=== PATIENT | female | born 1975 | race Caucasian/White ===

== ENCOUNTER → 2016-12-23 | Emergency (ER) | payer MEDICAID ==
[~2016-12-23] VITALS: Ht 160 cm; Wt 97.5 kg
[~2016-12-23] MED LIST: ALEVE220 M1 PO; CEPHALEXIN500 MG PO; CLOTRIMAZOLE-BE15 GM TOP; CYMBALTA60 MG PO; FLAX SEED OIL1000 MG PO; FLEXERIL10 MG PO; IBUPROFEN600 MG PO; JANUVIA100 MG PO; LYRICA75 MG PO; METFORMIN HCL500 M1 PO; METHOTREXATE2.5 MG PO; MOTRIN800 MG PO; MULTIPLE VITAM1 EAC2 PO; ONDANSETRON ODT8 MG PO; PERCOCET 5-3251 EACH PO; PRILOSEC20 MG PO; PROZAC20 MG PO; RISPERDAL0.5 MG PO; SENOKOT8.6 MG PO; TIZANIDINE HCL4 M1 PO; TRAMADOL HCL50 MG PO; VENLAFAXINE HCL75 MG PO; VITAMIN D32000 UNI1 PO
== END ==
LOC: ED 17:38
DX: S61.011A Laceration without foreign body of right thumb without damage to nail, initial encounter (principal); K52.9 Noninfective gastroenteritis and colitis, unspecified; R55 Syncope and collapse; K21.9 Gastro-esophageal reflux disease without esophagitis; Z87.891 Personal history of nicotine dependence; Z90.710 Acquired absence of both cervix and uterus; Z90.49 Acquired absence of other specified parts of digestive tract; Z79.899 Other long term (current) drug therapy; X58.XXXA Exposure to other specified factors, initial encounter
CPT/HCPCS: 99283

== ENCOUNTER 2019-02-26 13:14 | Emergency (ER) | payer OTHER ==
[~2019-02-26] VITALS: Ht 160 cm; Wt 97.5 kg
[~2019-02-26 13:14] MED LIST changes: +ACTOS30 MG PO; +AMITRIPTYLINE H25 MG PO; +CYCLOBENZAPRINE10 MG PO; +ENBREL50 MG/1 ML SUB-Q; +GABAPENTIN300 MG PO; +LEVO-T50 MCG PO; +LIPITOR20 MG PO; +NOVOLOG MI100 UNIT/2 SUB-Q; +OMEPRAZOLE20 MG PO; +ULTRAM50 MG PO; +VOLTAREN-XR100 MG PO; +WELLBUTRIN SR150 MG PO
[2019-02-26] MEDS ORDERED: BASAGLAR K100 UNIT/1 INJ (13:40)
[2019-02-26] MEDS ORDERED: TRULICITY1.5 MG/0.5 INJ (13:40)
== END 2019-02-26 19:44 | disposition home or self-care (01) ==
LOC: ED 13:14
DX: R10.31 Right lower quadrant pain (principal); K21.9 Gastro-esophageal reflux disease without esophagitis; E11.9 Type 2 diabetes mellitus without complications; F17.200 Nicotine dependence, unspecified, uncomplicated; Z79.899 Other long term (current) drug therapy; Z79.4 Long term (current) use of insulin
CPT/HCPCS: 36415; 74177; 80053; 81001; 83690; 85025; 99284-25; J1170; J2405; Q9967

== ENCOUNTER 2019-05-08 11:01 | Emergency (ER) | payer OTHER ==
[~2019-05-08] VITALS: Ht 160 cm; Wt 97.5 kg
[~2019-05-08 11:01] MED LIST changes: +BASAGLAR K100 UNIT/1 INJ; +TRULICITY1.5 MG/0.5 INJ
[2019-05-08] MEDS ORDERED: LYRICA25 MG PO (11:16)
[2019-05-08] MEDS ORDERED: HUMIRA10 MG/0.1 SUB-Q (11:17)
[2019-05-08] MEDS ORDERED: PREDNISONE20 MG PO (16:29)
[2019-05-08] MEDS ORDERED: ZITHROMAX250 MG PO (16:29)
== END 2019-05-08 16:38 | disposition home or self-care (01) ==
LOC: ED 11:01
DX: J40 Bronchitis, not specified as acute or chronic (principal); D72.829 Elevated white blood cell count, unspecified; E11.9 Type 2 diabetes mellitus without complications; F17.200 Nicotine dependence, unspecified, uncomplicated; Z79.899 Other long term (current) drug therapy
CPT/HCPCS: 71045; 80048; 83605; 85025; 94640; 94664; 96361; 96374; 99283-25; J1100; J1885; J7030

== ENCOUNTER 2020-02-04 11:05 | Day surgery (SDC) | payer OTHER ==
[~2020-02-04] VITALS: Ht 160 cm; Wt 107.7 kg
[~2020-02-04 11:05] MED LIST changes: +HUMIRA10 MG/0.1 SUB-Q; +LYRICA25 MG PO; +PREDNISONE20 MG PO; +ZITHROMAX250 MG PO
--- NOTE | 2020-02-04 12:25 | NUR ---
02/04/20 1225 Adriane Newman 1214 PATIENT ARRIVES TO PACU RESTING WITH EYES CLOSED IN PRONE POSITION. PATIENT FOLLOWS COMMANDS AND IS ABLE TO REPOSITION HERSELF TO RIGHT LATERAL POSITION. RESP EVEN AND UNLABORED, ROOM AIRS SATS >90%. PATIENT DENIES PAIN OR NAUSEA. 1220 PATIENT RESTING WITH EYES CLOSED. FOLLOWS COMMANDS TO REPOSITION SELF TO BACK, HOB ELEVATED TO 45 DEGREES. PATIENT TAKING SIPS OF WATER. RESP EVEN AND UNLABORED, ROOM AIR SATS >90%. CONTINUES TO DENY PAIN OR NAUSEA. ASLEEP WHEN NOT STIMULATED.
--- NOTE | 2020-02-11 09:39 | PATH ---
[facility] [address] [facility] [place], [place] [address] Signed THIS IS AN ADDENDUM REPORT SPECIMEN(S): A BONE MARROW - CORE SPECIMEN(S): B BONE MARROW - ASPIRATION SPECIMEN(S): C COMPREHENSIVE FLOW CYTOMETRY ONLY, BM EDTA ASP CLINICAL HISTORY: Bone marrow biopsy. 44-year-old female with chronic leukocytosis and abnormal peripheral blood film, query MPN. See attached. 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 Peripheral blood, smear: - Mild leukocytosis with absolute mature neutrophilia, eosinophilia, and lymphocytosis. - Mild erythrocytosis with microcytic erythrocytes. B. Bone marrow, aspirate, clot section, and core biopsy: - Normocellular marrow (60%) with trilineage hematopoiesis and mildly increased eosinophils and eosinophilic precursors. - No increase in blasts. - Absent stainable iron, no ring sideroblasts. - See Diagnostic Comment. DIAGNOSTIC COMMENT: Evaluation of this bone marrow specimen demonstrates a normocellular marrow with an estimated M:E ratio of 2-3:1. Both myeloids and erythroids show full spectrum maturation, although there is a mild increase in eosinophils and eosinophilic precursors which corresponds to the peripheral blood eosinophilia. Morphologic features diagnostic of a myeloproliferative neoplasm are not appreciated. A JAK2 V617F mutational study is also negative. Additional ancillary studies including karyotype, FISH for BCR/ABL, CALR and MPL molecular studies, and an eosinophilia FISH panel are pending, and results will be reported in an addendum. It is additionally noted that the patient is a current every-day smoker, which may be a cause of leukocytosis and secondary polycythemia. Of note, the red cells are also microcytic and an iron stain performed on the bone marrow aspirate and clot sections demonstrate absent stainable iron (while there is no anemia, serum iron studies may be warranted to exclude a component of iron deficiency). PATIENT NAME: ENEDELIA GARCIA PATHOLOGY DATE OF : 71 REPORT #: [id number] PHYSICIAN: HERMES PATHOLOGY PCP: OSCAR FALL MD REPORT IS CONFIDENTIAL AND NOT TO BE RELEASED WITHOUT AUTHORIZATION [facility] [address] [place], [place] [address] Signed Clinical and laboratory correlation is recommended. J[facility]:slh:C2NR PERIPHERAL BLOOD: HEMOGRAM ([facility], 02/04/2020): WBC 15.8 K/uL, RBC 5.55 M/uL, HGB 12.9 g/dL, HCT 41.0%, MCV 73.9 fL, MCH 23 pg, MCHC 31 g/dL, RDW 18.1%, PLT 353 K/uL. MANUAL DIFFERENTIAL COUNT (100 cells, performed by pathologist): Segmented neutrophils 49%, lymphocytes 31%, monocytes 2%, eosinophils 17%, basophils 1%. The red cells are mildly increased in number, and are microcytic and normochromic. There is mild anisocytosis. Poikilocytosis is not prominent. Of note, the hemoglobin and hematocrit values are normal. Leukocytes are mildly increased in number. No significant dysplastic features are seen in the neutrophils. Lymphocytes are predominantly small and mature. There is a mild eosinophilia, without a significant basophilia or monocytosis. A few scattered large granular lymphocytes are present. No circulating blasts are identified. Platelets are normal in number and include rare giant forms. BONE MARROW: BONE MARROW ASPIRATE: The bone marrow aspirate smears demonstrate abundant cellular spicules. Myeloids are present in adequate number and show full spectrum maturation. Erythroids are also present in adequate number and show full spectrum maturation. Megakaryocytes are seen scattered, and show large lobulated nuclei, without overtly atypical features noted. Blasts are not increased. There is a mild increase in eosinophils and eosinophilic precursors. MANUAL DIFFERENTIAL COUNT (200 cells): Blasts 0.5%, promyelocytes 1%, myelocytes 19.5%, metamyelocytes 17.5%, segs/bands 33.5%, erythroids 19.5%, lymphocytes 1.5%, plasma cells 1%, eosinophils 6%. BONE MARROW CORE BIOPSY AND ASPIRATE CLOT SECTION CELL BLOCK: The bone marrow core biopsy demonstrates a cellularity of approximately 60% overall, although the cellularity is somewhat variable across the length of the core, ranging from less than 5% in one segment to approximately 80% in other areas. The estimated M:E ratio is approximately 2-3:1. Myeloids demonstrate full spectrum maturation, although there is an increase in eosinophils and eosinophilic precursors. Blasts do not appear increased. Erythroids are present, and show full spectrum maturation. Megakaryocytes are seen distributed throughout the marrow space with generally normal morphology. PATIENT NAME: ENEDELIA GARCIA PATHOLOGY DATE OF : 71 REPORT #: [id number] PHYSICIAN: HERMES PATHOLOGY PCP: OSCAR FALL MD REPORT IS CONFIDENTIAL AND NOT TO BE RELEASED WITHOUT AUTHORIZATION [address] [address] Signed Trabecular bone is normal. The bone marrow clot sections show numerous fragments of marrow with similar findings as the core biopsy. SPECIAL STAINS (with adequate controls): - Iron stain (aspirate smear): Stainable iron is essentially absent; no ring sideroblasts identified. - Iron stain (block B1): Stainable iron is not detected; no ring sideroblasts. - Reticulin (block A1): No significant increase in reticulin fibrosis (MF-0 of 3). IMMUNOHISTOCHEMICAL STAINS (block A1): - CD34: No increase in blasts; rare cells and vessels staining. - Myeloperoxidase: Highlights numerous myeloid cells, confirming M:E ratio. - CD71: Positive in erythroid precursors, confirming M:E ratio. - Factor VIII: Positive in scattered megakaryocytes; no distinct tight clustering seen. [facility] FLOW CYTOMETRY: Bone marrow, flow cytometry - No increase in blasts. - No monotypic B-cell or aberrant T-cell population detected. - See Comment. COMMENT: Flow cytometry of this bone marrow specimen demonstrates no increase in CD34 or CD117 positive blasts. In addition, no abnormal lymphocyte population is detected. Full interpretation of these results requires correlation with morphologic and clinical findings. FLOW CYTOMETRY ANALYSIS: FLOW DIFFERENTIAL (% Total CD45 vs. SSC gating): Myeloid 84%; Lymphoid 8%; Monocyte 1%; Dim CD45/Blast: 1%. Cell Count: 5.8 x 10*3/uL. POPULATION ANALYSIS: BLASTS: Analysis of the dim CD45 gate demonstrates 1.2% myeloblasts by CD34/CD117. LYMPHOID CELLS: The lymphocyte gate comprises 8% of total events and includes 81% T-cells with a CD4:CD8 ratio of 1.0:1 and normal ibanez T-cell antigen expression. 15% of lymphocytes are polyclonal B-cells with a kappa:lambda ratio of 1.0:1. The remainders are NK-cells. MYELOID CELLS: The myeloid population comprises 84% of the total events. No aberrant or immature immunophenotypic expression is detected. PATIENT NAME: ENEDELIA GARCIA PATHOLOGY DATE OF : 71 REPORT #: [id number] PHYSICIAN: HERMES PATHOLOGY PCP: OSCAR FALL MD REPORT IS CONFIDENTIAL AND NOT TO BE RELEASED WITHOUT AUTHORIZATION [facility] [address] [place], [place] [address] Signed MONOCYTES: The monocyte population comprises 1% of the total events. Monocytes are not increased. No aberrant immunophenotypic expression is detected. PLASMA CELLS: 0.2% plasma cells are detected in the screening gate neg-dimCD45/CD38. Plasma cells are CD45 dim and positive for CD19. ANTIBODIES USED: KAPPA, LAMBDA, CD20, CD10, CD19, CD23, CD38, FMC7, CD16, CD56, CD8, CD5, CD2, CD4, CD7, CD3, CD14, CD33, CD13, HLADR, CD34, CD117, CD15, CD45: TOTAL ANTIBODIES USED: 24. TCS FINAL DIAGNOSIS PERFORMED BY: Janna Summers MD, Feb 05 2020 12:32PM CYTOGENETICS: Pending, to be reported by addendum. FISH ANALYSIS: Pending, to be reported by addendum. MOLECULAR / PCR: Bone marrow aspirate, JAK2 (V617F) point mutation detection Mutation specific PCR assay Results/Conclusions: NEGATIVE - The specimen tested negative for the JAK2 V617F point mutation. - CALR Exon 9 and MPL W515 mutation analysis are pending and will be reported separately. - Clinical and histological correlation is required for diagnosis. NOTE: In cases of suspected PV, JAK2 exon 12 analysis1-2 may be of additional diagnostic utility. Please advise the laboratory if add on testing is requested. The V617F mutation of the JAK2 (Janus kinase 2) gene has been described in polycythemia vera (PV), of essential thrombocythemia (ET) and primary myelofibrosis (PMF) cases.3-4 Identification of the V617F JAK2 point mutation in myeloproliferative neoplasms (MPN) is indicated in diagnosis, classification and monitoring. The presence of a V617F JAK2 point mutation below the sensitivity limit of the mutation specific JAK2 V617F PCR assay [approximately 1 in 1000 cells (0.1 %) in EDTA specimens] cannot be ruled out. References 1. Ankitai et al. Leukemia 21: 2007 2. Pietra et al. Blood 111: 2008 3. Daniel et al. The Lancet 2005: [phone] 4. Dionne et al. Cancer Cell 2005: 387-397 PATIENT NAME: ENEDELIA GARCIA PATHOLOGY DATE OF : 71 REPORT #: [id number] PHYSICIAN: HERMES HA PCP: OSCAR FALL MD REPORT IS CONFIDENTIAL AND NOT TO BE RELEASED WITHOUT AUTHORIZATION [address] [address] Signed Method: Utilizes quantitative real-time polymerase chain reaction (PCR) assay with specific primers for the JAK2 V617F point mutation. Genomic DNA was isolated from the specimen and quality and quantity were confirmed by RQ-PCR. Although molecular testing is highly accurate, rarely false-positive and false-negative diagnostic errors may occur. ANDREA/ARABELLA/CAROLYNN The technical and professional components of the molecular analysis were performed at [facility] ([place], [place], case #[id number]). Detailed report is kept on file. GROSS DESCRIPTION: A. The specimen, labeled "Sullens, bone core," is received in formalin and consists of a single ulloa, trabecular bone core fragment measuring 1.7 cm in greatest dimension. It is submitted in cassette (A1) following decalcification in Immunocal for 1.5 hours. B. The specimen, labeled "Sullens, clot," is received in formalin and consists of a 1.6 x 1.3 x 0.2 cm aggregate of blood clot. It is submitted entirely in cassette (B1). TN (under the direct supervision of a pathologist) The Gross Description was prepared using a voice recognition system. The report was reviewed for accuracy; however, sound-alike word errors, addition and/or deletions may occur. If there is any question about this report, please contact Client Services. ADDITIONAL NOTES: This test was developed and its performance characteristics determined by [facility] It has not been cleared or approved by the US Food and Drug Administration. The FDA does not require this test to go through premarket FDA review. This test is used for clinical purposes. It should not be regarded as investigational or for research. This laboratory is certified under the Clinical Laboratory Improvement Amendments (CLIA) as qualified to perform high complexity clinical laboratory testing. Immunohistochemical and/or in situ hybridization studies were performed on this case with the appropriate positive controls that react as expected. This test was developed and its performance characteristics determined by [facility] It has not been cleared or approved by the U.S. Food and Drug Administration. The FDA has determined that such clearance or approval is not necessary. This test is used for clinical purposes. It should not be regarded as investigational or for research. [facility] is certified under the PATIENT NAME: ENEDELIA GARCIA PATHOLOGY DATE OF : 71 REPORT #: [id number] PHYSICIAN: HERMES PATHOLOGY PCP: OSCAR FALL MD REPORT IS CONFIDENTIAL AND NOT TO BE RELEASED WITHOUT AUTHORIZATION [facility] [address] [place], [place] [address] Signed Clinical Laboratory Improvement Amendments of 1988 (CLIA) as qualified to perform high complexity clinical laboratory testing. In this case, certain antibodies were performed by both immunohistochemistry and flow cytometry analysis because flow cytometry analysis did not fully explain all the light microscopic findings. Immunohistochemistry aided in the analysis. Both methods are deemed medically necessary in this case. PERFORMING LABORATORY: The technical and professional components were performed by [facility] [place] [address] (Plate Slitter And Inspector: Nixon Cordova D.O.; CLIA#: [id number]). The technical and professional components were performed by [facility] [address] [place] [address] (Plate Slitter And Inspector: Nixon Cordova D.O.; CLIA#: [id number]). IMAGES: A: [id number] A: [id number] REASON FOR ADDENDUM: To add results of additional testing. MOLECULAR ANALYSIS Bone marrow aspirate, CALR Exon 9 Mutation Analysis Results/Conclusions: NEGATIVE - The specimen tested negative for CALR exon 9 insertion/deletion mutations at the sensitivity level of this analysis. - Clinical and histologic correlation would be required for the definitive diagnosis. Please note, that the presence of CALR exon 9 mutations below the sensitivity limit of this analysis (approximately 1-10 %) cannot be ruled out. The gene encoding calreticulin (CALR) is mutated in the majority (70-85%) of essential thrombocythemia (ET) and primary myelofibrosis (PMF) cases with non-mutated JAK2.1,2 CALR mutations have been found to be the second most frequent genetic mutation in myeloproliferative neoplasms (MPN) after Jak2. 1,2 Mutations in CALR have been reported to be mutually exclusive with mutations in both JAK2 and MPL and are not reported in polycythemia vera (PV).1-3 The identification of CALR Exon 9 insertion/ deletion mutations in myeloproliferative neoplasms (MPN) may be useful to assist diagnosis, PATIENT NAME: ENEDELIA GARCIA PATHOLOGY DATE OF : 71 REPORT #: [id number] PHYSICIAN: HERMES HA PCP: OSCAR FALL MD REPORT IS CONFIDENTIAL AND NOT TO BE RELEASED WITHOUT AUTHORIZATION [address] [address] Signed classification and monitoring.1-3 In addition, the presence of CALR mutations has been associated with a more benign clinical course in comparison to corresponding disorders associated with JAK2 or MPL mutations.1-4 References: 1.Adrianna et al. N Engl J Med. 2013;369(25):2391-405 2. Hui et al. N Engl J Med. 2013;369(25):2379-90 3.Jennifer et al. Blood.2012Feb 03. 4.Jennifero et al. Blood.2012Feb 06. Method: Polymerase chain reaction (PCR) amplification in combination with fluorescence-based capillary electrophoresis is utilized to detect and monitor insertion /deletion mutations in CALR Exon 9. The CALR Exon 9 amplification yields a wild- type PCR product of 261 base pairs. The presence of an insert mutation in CALR Exon 9 will result in a mutant PCR product >261 base pairs, a deletion mutation yields a PCR product < 261 base pairs. Positive results are confirmed by Abi sequencing and further characterization of the mutation. This assay can detect mutations in CALR Exon 9 with a minimum sensitivity of 10% depending on the wild type background in the specimen. Although molecular testing is highly accurate, rarely false-positive and false-negative diagnostic errors may occur. ARABELLA/CAROLYNN/ANDREA The technical and professional components of the molecular analysis were performed at [facility] ([place], [place], case #[id number]). Detailed report is kept on file. To add results of additional testing. Bone marrow aspirate, cytogenetic analysis: Result: 46,XX[20] Normal female karyotype Interpretation: Twenty normal cells were observed. There was no evidence of any chromosome abnormality within the limits of this study. Cytogenetic Analysis Summary: Number of Cells Imaged and Analyzed: 20 Number of Cultures used for Analysis: 2 Number of Karyograms: 5 Banding Level: 325-400 Extra Cells Analyzed /Scored: 0 Banding Method: GTW/G The technical and professional components of the cytogenetic analysis were performed at [facility] ([place], [place], case #[id number]). Detailed report is kept on file. To add results of additional testing. MOLECULAR ANALYSIS PATIENT NAME: ENEDELIA GARCIA PATHOLOGY DATE OF : 71 REPORT #: [id number] PHYSICIAN: HERMES HA PCP: OSCAR FALL MD REPORT IS CONFIDENTIAL AND NOT TO BE RELEASED WITHOUT AUTHORIZATION [facility] [address] [place], [place] [address] Signed Bone marrow aspirate, MPL (W515L/K) point mutation detection Results/Conclusions: NEGATIVE - The specimen tested negative for MPL W515L/K point mutations. - Clinical and histologic correlation would be required for the diagnosis. W515L/K mutations of the juxtamembrane region of the thrombopoietin receptor MPL (myeloproliferative leukemia virus oncogene homology) have been described in JAK2 B626O-echcoxzr primary myelofibrosis (PMF) and essential thrombocythemia (ET).3 The identification of W515 L/K point mutations in myeloproliferative neoplasms (MPN) may be useful to assist diagnosis, classification and monitoring. The presence of a W515L/K MPL point mutation below the sensitivity limit of this analysis [approximately 5 in 100 cells (5 %) in EDTA specimens] cannot be ruled out. References: 1. Adrianna et al. N Engl Med.2013;369(25):2391-405 2. Mark et al. N Engl J Med. 2013;369(25):2379-90 3. Mike et al. D 2008: 435 441 Method: Polymerase chain reaction (PCR) amplification in combination with fluorescence-based capillary electrophoresis is utilized to identify MPL W515L/K point mutations. This assay can detect MPL W515L/K point mutations with a minimum sensitivity of 5% depending on the wild type background in the specimen. Although molecular testing is highly accurate rarely false-positive and false-negative diagnostic errors may occur. DW/MRL/BZ The technical and professional components of the molecular analysis were performed at [facility] ([place], [place], case #[id number]). Detailed report is kept on file. Diagnostician: Janna Summers MD Pathologist Electronically Signed 02/11/2020 Copies: ~ PATIENT NAME: ENEDELIA GARCIA PATHOLOGY DATE OF : 71 REPORT #: [id number] PHYSICIAN: HERMES PATHOLOGY PCP: OSCAR FALL MD REPORT IS CONFIDENTIAL AND NOT TO BE RELEASED WITHOUT AUTHORIZATION
== END 2020-02-04 12:40 | disposition home or self-care (01) ==
LOC: OPS 11:05 → DS 11:09 → OPS 12:00 → DS 12:00 → OPS 12:40
PROVIDERS: ATTEND Specialist
PROC: 07DR3ZX Extraction of Iliac Bone Marrow, Percutaneous Approach, Diagnostic (ICD-10-PCS; principal; 2020-02-04 12:00)
DX: C92.10 Chronic myeloid leukemia, BCR/ABL-positive, not having achieved remission (principal); F17.210 Nicotine dependence, cigarettes, uncomplicated; M79.7 Fibromyalgia; M19.90 Unspecified osteoarthritis, unspecified site; J30.2 Other seasonal allergic rhinitis; K21.9 Gastro-esophageal reflux disease without esophagitis; D75.1 Secondary polycythemia; D64.9 Anemia, unspecified; E11.9 Type 2 diabetes mellitus without complications; E55.9 Vitamin D deficiency, unspecified; J44.9 Chronic obstructive pulmonary disease, unspecified; Z90.49 Acquired absence of other specified parts of digestive tract; Z90.711 Acquired absence of uterus with remaining cervical stump; Z79.890 Hormone replacement therapy; Z79.4 Long term (current) use of insulin; Z88.8 Allergy status to other drugs, medicaments and biological substances
CPT/HCPCS: 85025; 99153; G0500; J2250; J3010; J7121

== ENCOUNTER 2021-03-18 18:36 | Emergency (ER) | payer OTHER ==
[~2021-03-18] VITALS: Ht 160 cm; Wt 107.5 kg
[2021-03-19] MEDS ORDERED: ONDANSETRON ODT8 MG PO (00:37)
== END 2021-03-19 01:19 | disposition home or self-care (01) ==
LOC: ED 18:36
DX: U07.1 COVID-19 (principal); M19.90 Unspecified osteoarthritis, unspecified site; K21.9 Gastro-esophageal reflux disease without esophagitis; E11.9 Type 2 diabetes mellitus without complications; F17.200 Nicotine dependence, unspecified, uncomplicated; Z88.8 Allergy status to other drugs, medicaments and biological substances; Z79.4 Long term (current) use of insulin; Z79.84 Long term (current) use of oral hypoglycemic drugs; Z79.899 Other long term (current) drug therapy
CPT/HCPCS: 36415; 74018; 80053; 81001; 83690; 85025; 96374; 96375; 99284-25; C9803; J1170; J2405; J7030; U0003

== ENCOUNTER 2021-06-24 18:55 | Emergency (ER) | payer OTHER ==
[~2021-06-24] VITALS: Ht 160 cm; Wt 107.5 kg
[2021-06-24] MEDS ORDERED: LEVOFLOXACIN750 MG PO (21:35)
--- NOTE | 2021-06-26 14:08 | EKG ---
[facility] [address] [facility] [place] [address] Signed Normal sinus rhythm Low voltage QRS Borderline ECG No previous ECGs available Confirmed by LUIS VILLANUEVA MD ([id number]) on 06/26/2021 2:08:19 PM Electronically Signed By: LUIS VILLANUEVA MD 06/26/21 1408 PATIENT NAME: ENEDELIA GARCIA Electrocardiogram DATE OF : 71 PHYSICIAN: LUIS VILLANUEVA MD REPORT #: [id number] REPORT IS CONFIDENTIAL AND NOT TO BE RELEASED WITHOUT AUTHORIZATION
== END 2021-06-24 21:54 | disposition home or self-care (01) ==
LOC: ED 18:55
DX: J18.9 Pneumonia, unspecified organism (principal); M19.90 Unspecified osteoarthritis, unspecified site; K21.9 Gastro-esophageal reflux disease without esophagitis; E11.9 Type 2 diabetes mellitus without complications; F17.200 Nicotine dependence, unspecified, uncomplicated; Z88.8 Allergy status to other drugs, medicaments and biological substances; Z79.4 Long term (current) use of insulin; Z79.84 Long term (current) use of oral hypoglycemic drugs; Z20.822 Contact with and (suspected) exposure to COVID-19
CPT/HCPCS: 36415; 71045; 80053; 81001; 83605; 84484; 85025; 85379; 87502; 93005; 93010; 99285-25; C9803; U0003

== ENCOUNTER 2022-08-22 20:18 | Emergency (ER) | payer OTHER ==
[~2022-08-22] VITALS: Ht 160 cm; Wt 115.0 kg
[~2022-08-22 20:18] MED LIST changes: +LEVOFLOXACIN750 MG PO
[2022-08-22] MEDS ORDERED: NYSTATIN100000 UN1 PO (22:04)
[2022-08-22 22:16] VITALS: BP 156/91
[2022-08-23] MEDS ORDERED: EPIPEN 2-P0.3 MG/0.3 IM (02:37)
== END 2022-08-22 22:17 | disposition home or self-care (01) ==
LOC: ED 20:18
DX: B37.0 Candidal stomatitis (principal); E11.9 Type 2 diabetes mellitus without complications; F17.200 Nicotine dependence, unspecified, uncomplicated; Z20.822 Contact with and (suspected) exposure to COVID-19; Z88.8 Allergy status to other drugs, medicaments and biological substances; Z79.899 Other long term (current) drug therapy; Z79.4 Long term (current) use of insulin
CPT/HCPCS: 36415; 71045; 80053; 85025; 85060; 85651; 87502; 87651; 96374; 96375; 99283 25; J0171; J1100; J1200; J7121; U0002

== ENCOUNTER 2022-09-20 19:31 | Inpatient (IN) | payer OTHER ==
[~2022-09-20] VITALS: Ht 160 cm; Wt 113.0 kg
--- OUTSIDE RECORDS SUMMARY | ~2022-09-20 | XMS | Continuity of Care Document ---
Demographics + + + | Address | [address] | | | [place] [address] | + + + | Preferred Language | Unknown | + + + | Marital Status | Never | + + + | Mu-Ism Affiliation | Unknown | + + + | Race | White | + + + | Ethnic Group | Not or | + + + Author + + + | Author | [facility] | + + + | Organization | [facility] | + + + | Address | [address] | | | [place] [address] | + + + | Phone | | + + + Care Team Providers + + + + | Care Tug Captain Name | Role | Phone | + [...] facility | + + + + | 2022-08-22 00:00 | FLUOXETINE HCL | [facility] | + + + + | 2022-09-05 00:00 | FLUOXETINE HCL | [facility] | + + + + | 2022-09-05 00:00 | OXYCODONE HCL | [facility] | + + + + | 2022-08-22 00:00 | OXYCODONE | [facility] | | | HCL/ACETAMINOPHEN | | + + + + | 2022-09-05 00:00 | OXYCODONE | [facility] | | | HCL/ACETAMINOPHEN | | + + + + | 2022-08-22 00:00 | METHOTREXATE SODIUM | [facility] | + + + + | 2022-09-05 00:00 | METHOTREXATE SODIUM | [facility] | + + + + | 2022-08-22 00:00 | NAPROXEN SODIUM | [facility] | + + + + | 2022-09-05 00:00 | NAPROXEN SODIUM | [facility] | + + + + | 2022-09-05 00:00 | Ergocalciferol (Vitamin | [facility] | | | D2) | | + + + + | 2022-08-22 00:00 | DULAGLUTIDE | [facility] | + + + + | 2022-09-05 00:00 | DULAGLUTIDE | [facility] | + + + + | 2022-08-22 00:00 | Insulin | [facility] | | | Glanadiae,[facility]rec.anlog | | + + + + | 2022-09-05 00:00 | Insulin | [facility] | | | Glargine,[facility].rec.anlog | | + + + + | 2022-09-05 00:00 | EPINEPHRINE | [facility] | + + + + | 2022-09-05 00:00 | Adalimumab | [facility] | + + + + | 2022-08-22 00:00 | Adalimumab | [facility] | + + + + | 2022-09-05 00:00 | Adalimumab | [facility] | + + + + | 2022-09-05 00:00 | | [facility] | | | Fluticasone/Umeclidin/Vilan | | | | ter | | + + + + | 2022-08-22 00:00 | IBUPROFEN | [facility] | + + + + | 2022-09-05 00:00 | IBUPROFEN | [facility] | + + + + | 2022-08-22 00:00 | OMEPRAZOLE | [facility] | + + + + | 2019-05-08 00:00 | AZITHROMYCIN | [facility] | + + + + | 2022-08-22 00:00 | PIOGLITAZONE HCL | [facility] | + + + + | 2022-09-05 00:00 | PIOGLITAZONE HCL | [facility] | + + + + | 2022-08-22 00:00 | CLOTRIMAZOLE/BETAMETHASONE | [facility] | | | DIP | | + + + + | 2022-09-05 00:00 | CLOTRIMAZOLE/BETAMETHASONE | [facility] | | | DIP | | + + + + | 2022-08-22 00:00 | CEPHALEXIN | [facility] | + + + + | 2022-09-05 00:00 | CEPHALEXIN | [facility] | + + + + | 2022-09-05 00:00 | CEVIMELINE HCL | [facility] | + + + + | 2022-08-22 00:00 | GABAPENTIN | [facility] | + + + + | 2022-09-05 00:00 | GABAPENTIN | [facility] | + + + + | 2021-06-24 00:00 | LEVOFLOXACIN | [facility] | + + + + | 2022-08-22 00:00 | NYSTATIN | [facility] | + + + + | 2016-12-23 00:00 | ONDANSETRON | [facility] | + + + + | 2021-03-19 00:00 | ONDANSETRON | [facility] | + + + + | 2019-05-08 00:00 | predniSONE | [facility] | + + + + | 2022-09-05 00:00 | predniSONE | [facility] | + + + + | 2022-09-05 00:00 | SUCRALFATE | [facility] | + + + + | 2022-09-05 00:00 | VALACYCLOVIR HCL | [facility] | + + + + | 2022-08-22 00:00 | VENLAFAXINE HCL | [facility] | + + + + | 2022-09-05 00:00 | VENLAFAXINE HCL | [facility] | + + + + | 2022-09-05 00:00 | PANTOPRAZOLE SODIUM | [facility] | + + + + | 2022-08-22 00:00 | SENNOSIDES | [facility] | + + + + | 2022-09-05 00:00 | SENNOSIDES | [facility] | + + + + | 2022-09-05 00:00 | Pregabalin | [facility] | + + + + | 2022-08-22 00:00 | TIZANIDINE HCL | [facility] | + + + + | 2022-09-05 00:00 | TIZANIDINE HCL | [facility] | + + + + | 2022-08-22 00:00 | PREGABALIN | [facility] | + + + + | 2022-08-22 00:00 | PREGABALIN | [facility] | + + + + | 2022-09-05 00:00 | PREGABALIN | [facility] | + + + + | 2022-08-22 00:00 | DULOXETINE HCL | [facility] | + + + + | 2022-09-05 00:00 | DULOXETINE HCL | [facility] | + + + + | 2022-08-22 00:00 | ATORVASTATIN | [facility] | + + + + | 2022-09-05 00:00 | ATORVASTATIN | [facility] | + + + + | 2022-08-22 00:00 | SITAGLIPTIN PHOSPHATE | [facility] | + + + + | 2022-09-05 00:00 | SITAGLIPTIN PHOSPHATE | [facility] | + + + + | 2022-08-23 00:00 | EPINEPHRINE | [facility] | + + + + | 2022-08-22 00:00 | CHOLECALCIFEROL (VITAMIN | [facility] | | | D3) | | + + + + | 2022-09-05 00:00 | CHOLECALCIFEROL (VITAMIN | [facility] | | | D3) | | + + + + | 2022-08-22 00:00 | ETANERCEPT | [facility] | + + + + | 2022-09-05 00:00 | ETANERCEPT | [facility] | + + + + | 2022-08-22 00:00 | CYCLOBENZAPRINE HCL | [facility] | + + + + | 2022-09-05 00:00 | CYCLOBENZAPRINE HCL | [facility] | + + + + | 2022-08-22 00:00 | TRAMADOL HCL | [facility] | + + + + | 2022-09-05 00:00 | TRAMADOL HCL | [facility] | + + + + | 2018-01-07 00:00 | TRAMADOL HCL | [facility] | + + + + | 2022-08-22 00:00 | DICLOFENAC SOD | [facility] | + + + + | 2022-09-05 00:00 | DICLOFENAC SOD | [facility] | + + + + | 2022-08-22 00:00 | AMITRIPTYLINE HCL | [facility] | + + + + | 2022-09-05 00:00 | AMITRIPTYLINE HCL | [facility] | + + + + | 2022-08-22 00:00 | METFORMIN HCL | [facility] | + + + + | 2022-09-05 00:00 | METFORMIN HCL | [facility] | + + + + | 2022-08-22 00:00 | Levothyroxine Sodium | [facility] | + + + + | 2022-09-05 00:00 | Levothyroxine Sodium | [facility] | + + + + | 2022-09-05 00:00 | LEVOTHYROXINE SODIUM | [facility] | + + + + | 2022-08-22 00:00 | Insulin Aspart Prot/Insuln | [facility] | | | Asp | | + + + + | 2022-09-05 00:00 | Insulin Aspart Prot/Insuln | [facility] | | | Asp | | + + + + | 2022-08-22 00:00 | buPROPion HCL | [facility] | + + + + | 2022-09-05 00:00 | buPROPion HCL | [facility] | + + + + Problems + + + + | date | description | facility | + + + + | 2021-03-19 00:00 | Infection due to severe | [facility] | | | acute respiratory syndrome | [...] | 2022-08-22 00:00 | Thrush | [facility] | + + + + | 2022-08-22 20:19 | CANDIDAL STOMATITIS | [facility] | + + + + | 2022-08-22 20:19 | TYPE 2 DIABETES MELLITUS | [facility] | | | WITHOUT COMPLICATIONS | | + + + + | 2022-08-22 20:19 | NICOTINE DEPENDENCE, | [facility] | | | UNSPECIFIED, UNCOMPLICATED | | + + + + | 2022-08-22 20:19 | 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 | [facility] | | | INSULIN | | + + + + | 2022-08-22 20:19 | OTHER HALFWAY (CURRENT) | [facility] | | | DRUG THERAPY | | + + + + | 2022-08-22 20:19 | ALLERGY STATUS TO OTH | [facility] | | | DRUG/MEDS/BIOL SUBST STATUS | | | | | | + + + + | 2022-09-05 00:00 | Mucositis | [facility] | + + + + | 2022-09-05 00:00 | Erythema multiforme | [facility] | + + + + | 2022-09-05 [...] + + | 2022-09-05 09:02 | OTHER ORTHODONTIC ASSISTANT (CURRENT) | [facility] | | | DRUG THERAPY | | + + + + | 2022-09-05 09:02 | ALLERGY STATUS TO OTH | [facility] | | | DRUG/MEDS/BIOL SUBST STATUS | | | | | | + + + + Procedures [...] 9 | + + + + + +------+ + + | | 2022-08-22 | [facility] | 50 | (missing) | (missing) | | (unavailable | 21:00:07 [facility] | | | | + + + +------+ + + + + | Result panel 10 | + + + + + +-------+ + + | | 2022-08-22 | [facility] | 4.9 | (missing) | (missing) | | (unavailable | 21:00:07 [facility] | | | | + + + +-------+ + + + + | Result panel 11 | + + + + + + [...] 18 | + + + + + +--------+ + + | | 2022-08-22 | [facility] | 36.5 | (missing) | (missing) | | (unavailable | 21:00:07 [facility] | | | | + + + +--------+ + + + + | Result panel 19 | + + + + + +-------+ [...] 21 | + + + + + +--------+ [...] 24 | + + + + + +-------+ + + | | 2022-08-22 | [facility] | 0.5 | (missing) | (missing) | | (unavailable | [facility] | | | | + + + +-------+ + + + + | Result panel 25 | + + + + + +------+ + + | | 2022-08-22 | [facility] | 50 | (missing) | (missing) | | (unavailable | : [facility] | | | | + + + +------+ + + + + | Result panel 26 | + + + + + +-------+---------+ + | | 2022-08-22 | [facility] | 219 | mg/dL | (missing) | | (unavailable | ::07 | [facility] | | | | + + + +-------+---------+ + + + | Result panel 27 | + + + + + +------+---------+ + | | 2022-08-22 | [facility] | 14 | mg/dL | (missing) | | (unavailable | ::07 [facility] | | | | + + + +------+---------+ + + + | Result panel 28 | + + + + + +--------+---------+ + | | 2022-08-22 | [facility] | 0.99 | mg/dL | (missing) | | (unavailable | 21::07 [facility] | | | | + + + +--------+---------+ + + + | Result panel 29 | + + + + + +------+ + + | | 2022-08-22 | [facility] | 70 | (missing) | (missing) | | (unavailable | 21:00:07 [facility] | | | | + + + +------+ + + + + | Result panel 30 | + + + + + +---------+ [...] 33 | + + + + + +-------+ + + | | 2022-08-22 | [facility] | 102 | (missing) | (missing) | | (unavailable | :: [facility] | | | | + + + +-------+ + + + + | Result panel 34 | + + + + + +------+ + + | | 2022-08-22 | [facility] | 29 | (missing) | (missing) | | (unavailable | 21::07 [facility] | | | | + + + +------+ + + + + | Result panel 35 | + + + + + +--------+ + + | | 2022-08-22 | [facility] | 11.0 | (missing) | (missing) | | (unavailable | ::07 [facility] | | | | + + + +--------+ + + + + | Result panel 36 | + + + + + +-------+---------+ + | | 2022-08-22 | [facility] | 8.5 | mg/dL | (missing) | | (unavailable | : [facility] | | | | + + + +-------+---------+ + + + | Result panel 37 | + + + + + +-------+ + + | | 2022-08-22 | [facility] | 6.6 | (missing) | (missing) | | (unavailable | : [facility] | | | [...] 39 | + + + + + +-------+ + + | | 2022-08-22 | [facility] | 3.5 | (missing) | (missing) | | (unavailable | 21::07 [facility] | | | | + + + +-------+ + + + + | Result panel 40 | + + + + + +--------+ + + | | 2022-08-22 | [facility] | 0.89 | (missing) | (missing) | | (unavailable | 21:00:07 [facility] | | | | + + + +--------+ + + + + | Result panel 41 | + + + + + +-------+ [...] 46 | + + + + + +--------+ + + | | 2022-09-05 | [facility] | 91.8 | (missing) | (missing) | | (unavailable | 09:37:07 [facility] | | | | + + + +--------+ + + + + | Result panel 47 | + + + + + +--------+ + + | | 2022-09-05 | [facility] | 30.7 | (missing) | (missing) | | (unavailable | 09:37:07 [facility] | | | | + + + +--------+ + + + + | Result panel 48 | + + + + + +--------+ + + | | 2022-09-05 | [facility] | 33.5 | (missing) | (missing) | | (unavailable | 09:37:07 [facility] | | | | + + + +--------+ + + + + | Result panel 49 | + + + + + +--------+ + + | | 2022-09-05 | [facility] | 38.2 | (missing) | (missing) | | (unavailable | 09:37:07 [facility] | | | | + + + +--------+ + + + + | Result panel 50 | + + + + + +-------+ + + | | 2022-09-05 | [facility] | 200 | (missing) | (missing) | | (unavailable | 09:37:07 [facility] | | | | + + + +-------+ + + + + | Result panel 51 | + + + + + +--------+ + + | | 2022-09-05 | [facility] | 43.3 | (missing) | (missing) | | (unavailable | 09:37:07 [facility] | | | | + + + +--------+ + + + + | Result panel 52 | + + + + + +--------+ + + | | 2022-09-05 | [facility] | 51.0 | (missing) | (missing) | | (unavailable | 09:37:07 [facility] | | | | + + + +--------+ + + + + | Result panel 53 | + + + + + +-------+ + + | | 2022-09-05 | [facility] | 4.6 | (missing) | (missing) | | (unavailable | 09:37:07 [facility] | | | | + + + +-------+ + + + + | Result panel 54 | + + + + + +-------+ [...] 56 | + + + + + +-------+---------+ + | | 2022-09-05 | [facility] | 141 | mg/dL | (missing) | | (unavailable | 09:37:07 [facility] | | | | + + + +-------+---------+ + + + | Result panel 57 | + + + + + +------+---------+ + | | 2022-09-05 | [facility] | 26 | mg/dL | (missing) | | (unavailable | 09:37:07 [facility] | | | | + + + +------+---------+ + + + | Result panel 58 | + + + + + +--------+---------+ + | | 2022-09-05 | [facility] | 1.11 | mg/dL | (missing) | | (unavailable | 09:37:07 [facility] | | | | + + + +--------+---------+ + + + | Result panel 59 | + + + + + +------+ + + | | 2022-09-05 | [facility] | 61 | (missing) | (missing) | | (unavailable | 09:37:07 [facility] | | | | + + + +------+ + + + + | Result panel 60 | + + + + + +---------+ + + | | 2022-09-05 | [facility] | 23.42 | (missing) | (missing) | | (unavailable | 09:37:07 [facility] | | | | + + + +---------+ + + + + | Result panel 61 | + + + + + +-------+ + + | | 2022-09-05 | [facility] | 139 | (missing) | (missing) | | (unavailable | 09:37:07 [facility] | | | | + + + +-------+ + + + + | Result panel 62 | + + + + + +-------+ + + | | 2022-09-05 | [facility] | 3.5 | (missing) | (missing) | | (unavailable | 09:37:07 [facility] | | | | + + + +-------+ + + + + | Result panel 63 | + + + + + +-------+ + + | | 2022-09-05 | [facility] | 101 | (missing) | (missing) | | (unavailable | 09:37:07 [facility] | | | | + + + +-------+ + + + + | Result panel 64 | + + + + + +------+ [...] 66 | + + + + + +-------+---------+ + | | 2022-09-05 | [facility] | 9.2 | mg/dL | (missing) | | (unavailable | 09:37:07 [facility] | | | | + + + +-------+---------+ + + + | Result panel 67 | + + + + + +-------+ + + | | 2022-09-05 | [facility] | 6.5 | (missing) | (missing) | | (unavailable | 09:37:07 [facility] ) | [...] 70 | + + + + + +--------+ + + | | 2022-09-05 | [facility] | 0.86 | (missing) | (missing) | | (unavailable | :37:07 [facility] | | | | + + + +--------+ + + + + | Result panel 71 | + + + + + +-------+ + + | | 2022-09-05 | [facility] | 1.0 | (missing) | (missing) | | (unavailable | :37:07 [facility] | | | | + + + +-------+ + + + + | Result panel 72 | + + + + + +------+ + + | | 2022-09-05 | [facility] | 66 | (missing) | (missing) | | (unavailable | 09:37:07 [facility] | | | | + + + +------+ + + + + | Result panel 73 [...] 74 | + + + + + +------+ [...] 76 | + + + + + + + + + | | 2022-09-05 | [facility] | SEE COMMENT | (missing) | (missing) | | (unavailable | 09:37:07 [facility] | | | | + + + + + + + + + | Result panel 77 | + + + + + +--------+ + + | | 2022-09-05 | [facility] | 3.12 | (missing) | (missing) | | (unavailable | 09:37:07 [facility] | | | | + + + +--------+ + + + + | Result panel 78 | + + + + + +-------+ [...] 236 | lb | + + + +---------+"
--- OUTSIDE RECORDS SUMMARY | ~2022-09-20 | XMS | Continuity of Care Document ---
Demographics + + + | Address | [address] | | | [place] [address] | + + + | Preferred Language | Unknown | + + + | Marital Status | Never | + + + | Adventism Affiliation | Unknown | + + + | Race | White | + + + | Ethnic Group | Not or | + + + Author + + + | Author | [facility] | + + + | Organization | [facility] | + + + | Address | [address] | | | [place] [address] | + + + | Phone | | + + + Care Team Providers + + + + | Care Mortgage Loan Coordinator Name | Role | Phone | + [...] | 2022-08-22 00:00 | FLUOXETINE HCL | [facility] | + + + + | 2022-09-05 00:00 | FLUOXETINE HCL | [facility] | + + + + | 2022-09-05 00:00 | OXYCODONE HCL | [facility] | + + + + | 2022-08-22 00:00 | OXYCODONE | [facility] | | | HCL/ACETAMINOPHEN | | + + + + | 2022-09-05 00:00 | OXYCODONE | [facility] | | | HCL/ACETAMINOPHEN | | + + + + | 2022-08-22 00:00 | METHOTREXATE SODIUM | [facility] | + + + + | 2022-09-05 00:00 | METHOTREXATE SODIUM | [facility] | + + + + | 2022-08-22 00:00 | NAPROXEN SODIUM | [facility] | + + + + | 2022-09-05 00:00 | NAPROXEN SODIUM | [facility] | + + + + | 2022-09-05 00:00 | Ergocalciferol (Vitamin | [facility] | | | D2) | | + + + + | 2022-08-22 00:00 | DULAGLUTIDE | [facility] | + + + + | 2022-09-05 00:00 | DULAGLUTIDE | [facility] | + + + + | 2022-08-22 00:00 | Insulin | [facility] | | | Glanadiae,[email or web address] | | + + + + | 2022-09-05 00:00 | Insulin | [facility] | | | Glargine,[facility].[email or web address] | | + + + + | 2022-09-05 00:00 | EPINEPHRINE | [facility] | + + + + | 2022-09-05 00:00 | Adalimumab | [facility] | + + + + | 2022-08-22 00:00 | Adalimumab | [facility] | + + + + | 2022-09-05 00:00 | Adalimumab | [facility] | + + + + | 2022-09-05 00:00 | | [facility] | | | Fluticasone/Umeclidin/Vilan | | | | ter | | + + + + | 2022-08-22 00:00 | IBUPROFEN | [facility] | + + + + | 2022-09-05 00:00 | IBUPROFEN | [facility] | + + + + | 2022-08-22 00:00 | OMEPRAZOLE | [facility] | + + + + | 2019-05-08 00:00 | AZITHROMYCIN | [facility] | + + + + | 2022-08-22 00:00 | PIOGLITAZONE HCL | [facility] | + + + + | 2022-09-05 00:00 | PIOGLITAZONE HCL | [facility] | + + + + | 2022-08-22 00:00 | CLOTRIMAZOLE/BETAMETHASONE | [facility] | | | DIP | | + + + + | 2022-09-05 00:00 | CLOTRIMAZOLE/BETAMETHASONE | [facility] | | | DIP | | + + + + | 2022-08-22 00:00 | CEPHALEXIN | [facility] | + + + + | 2022-09-05 00:00 | CEPHALEXIN | [facility] | + + + + | 2022-09-05 00:00 | CEVIMELINE HCL | [facility] | + + + + | 2022-08-22 00:00 | GABAPENTIN | [facility] | + + + + | 2022-09-05 00:00 | GABAPENTIN | [facility] | + + + + | 2021-06-24 00:00 | LEVOFLOXACIN | [facility] | + + + + | 2022-08-22 00:00 | NYSTATIN | [facility] | + + + + | 2016-12-23 00:00 | ONDANSETRON | [facility] | + + + + | 2021-03-19 00:00 | ONDANSETRON | [facility] | + + + + | 2019-05-08 00:00 | predniSONE | [facility] | + + + + | 2022-09-05 00:00 | predniSONE | [facility] | + + + + | 2022-09-05 00:00 | SUCRALFATE | [facility] | + + + + | 2022-09-05 00:00 | VALACYCLOVIR HCL | [facility] | + + + + | 2022-08-22 00:00 | VENLAFAXINE HCL | [facility] | + + + + | 2022-09-05 00:00 | VENLAFAXINE HCL | [facility] | + + + + | 2022-09-05 00:00 | PANTOPRAZOLE SODIUM | [facility] | + + + + | 2022-08-22 00:00 | SENNOSIDES | [facility] | + + + + | 2022-09-05 00:00 | SENNOSIDES | [facility] | + + + + | 2022-09-05 00:00 | Pregabalin | [facility] | + + + + | 2022-08-22 00:00 | TIZANIDINE HCL | [facility] | + + + + | 2022-09-05 00:00 | TIZANIDINE HCL | [facility] | + + + + | 2022-08-22 00:00 | PREGABALIN | [facility] | + + + + | 2022-08-22 00:00 | PREGABALIN | [facility] | + + + + | 2022-09-05 00:00 | PREGABALIN | [facility] | + + + + | 2022-08-22 00:00 | DULOXETINE HCL | [facility] | + + + + | 2022-09-05 00:00 | DULOXETINE HCL | [facility] | + + + + | 2022-08-22 00:00 | ATORVASTATIN | [facility] | + + + + | 2022-09-05 00:00 | ATORVASTATIN | [facility] | + + + + | 2022-08-22 00:00 | SITAGLIPTIN PHOSPHATE | [facility] | + + + + | 2022-09-05 00:00 | SITAGLIPTIN PHOSPHATE | [facility] | + + + + | 2022-08-23 00:00 | EPINEPHRINE | [facility] | + + + + | 2022-08-22 00:00 | CHOLECALCIFEROL (VITAMIN | [facility] | | | D3) | | + + + + | 2022-09-05 00:00 | CHOLECALCIFEROL (VITAMIN | [facility] | | | D3) | | + + + + | 2022-08-22 00:00 | ETANERCEPT | [facility] | + + + + | 2022-09-05 00:00 | ETANERCEPT | [facility] | + + + + | 2022-08-22 00:00 | CYCLOBENZAPRINE HCL | [facility] | + + + + | 2022-09-05 00:00 | CYCLOBENZAPRINE HCL | [facility] | + + + + | 2022-08-22 00:00 | TRAMADOL HCL | [facility] | + + + + | 2022-09-05 00:00 | TRAMADOL HCL | [facility] | + + + + | 2018-01-07 00:00 | TRAMADOL HCL | [facility] | + + + + | 2022-08-22 00:00 | DICLOFENAC SOD | [facility] | + + + + | 2022-09-05 00:00 | DICLOFENAC SOD | [facility] | + + + + | 2022-08-22 00:00 | AMITRIPTYLINE HCL | [facility] | + + + + | 2022-09-05 00:00 | AMITRIPTYLINE HCL | [facility] | + + + + | 2022-08-22 00:00 | METFORMIN HCL | [facility] | + + + + | 2022-09-05 00:00 | METFORMIN HCL | [facility] | + + + + | 2022-08-22 00:00 | Levothyroxine Sodium | [facility] | + + + + | 2022-09-05 00:00 | Levothyroxine Sodium | [facility] | + + + + | 2022-09-05 00:00 | LEVOTHYROXINE SODIUM | [facility] | + + + + | 2022-08-22 00:00 | Insulin Aspart Prot/Insuln | [facility] | | | Asp | | + + + + | 2022-09-05 00:00 | Insulin Aspart Prot/Insuln | [facility] | | | Asp | | + + + + | 2022-08-22 00:00 | buPROPion HCL | [facility] | + + + + | 2022-09-05 00:00 | buPROPion HCL | [facility] | + + + + Problems + + + + | date | description | facility | + + + + | 2021-03-19 00:00 | Infection due to severe | [facility] | | | acute respiratory syndrome | [...] | 2022-08-22 00:00 | Thrush | 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 | + + + + | 2022-09-05 00:00 | Erythema multiforme | [facility] | + + + + | 2022-09-05 [...] + + | 2022-09-05 09:02 | OTHER COMPUTER ASSEMBLER (CURRENT) | [facility] | | | DRUG [...]
--- OUTSIDE RECORDS SUMMARY | ~2022-09-20 | XMS | Continuity of Care Document ---
Demographics + + + | Address | [address] | | | [place] [address] | + + + | Preferred Language | Unknown | + + + | Marital Status | Never | + + + | Cheondoism Affiliation | Unknown | + + + | Race | White | + + + | Ethnic Group | Not or | + + + Author + + + | Author | [facility] | + + + | Organization | [facility] | + + + | Address | [address] | | | [place] [address] | + + + | Phone | | + + + Care Team Providers + + + + | Care Machine Maintenance Name | Role | Phone | + [...] | 2022-08-22 00:00 | FLUOXETINE HCL | [facility] | + + + + | 2022-09-05 00:00 | FLUOXETINE HCL | [facility] | + + + + | 2022-09-05 00:00 | OXYCODONE HCL | [facility] | + + + + | 2022-08-22 00:00 | OXYCODONE | [facility] | | | HCL/ACETAMINOPHEN | | + + + + | 2022-09-05 00:00 | OXYCODONE | [facility] | | | HCL/ACETAMINOPHEN | | + + + + | 2022-08-22 00:00 | METHOTREXATE SODIUM | [facility] | + + + + | 2022-09-05 00:00 | METHOTREXATE SODIUM | [facility] | + + + + | 2022-08-22 00:00 | NAPROXEN SODIUM | [facility] | + + + + | 2022-09-05 00:00 | NAPROXEN SODIUM | [facility] | + + + + | 2022-09-05 00:00 | Ergocalciferol (Vitamin | [facility] | | | D2) | | + + + + | 2022-08-22 00:00 | DULAGLUTIDE | [facility] | + + + + | 2022-09-05 00:00 | DULAGLUTIDE | [facility] | + + + + | 2022-08-22 00:00 | Insulin | [facility] | | | Glanadiae,[facility].[email or web address] | | + + + + | 2022-09-05 00:00 | Insulin | [facility] | | | Glargine,[facility].[email or web address] | | + + + + | 2022-09-05 00:00 | EPINEPHRINE | [facility] | + + + + | 2022-09-05 00:00 | Adalimumab | [facility] | + + + + | 2022-08-22 00:00 | Adalimumab | [facility] | + + + + | 2022-09-05 00:00 | Adalimumab | [facility] | + + + + | 2022-09-05 00:00 | | [facility] | | | Fluticasone/Umeclidin/Vilan | | | | ter | | + + + + | 2022-08-22 00:00 | IBUPROFEN | [facility] | + + + + | 2022-09-05 00:00 | IBUPROFEN | [facility] | + + + + | 2022-08-22 00:00 | OMEPRAZOLE | [facility] | + + + + | 2019-05-08 00:00 | AZITHROMYCIN | [facility] | + + + + | 2022-08-22 00:00 | PIOGLITAZONE HCL | [facility] | + + + + | 2022-09-05 00:00 | PIOGLITAZONE HCL | [facility] | + + + + | 2022-08-22 00:00 | CLOTRIMAZOLE/BETAMETHASONE | [facility] | | | DIP | | + + + + | 2022-09-05 00:00 | CLOTRIMAZOLE/BETAMETHASONE | [facility] | | | DIP | | + + + + | 2022-08-22 00:00 | CEPHALEXIN | [facility] | + + + + | 2022-09-05 00:00 | CEPHALEXIN | [facility] | + + + + | 2022-09-05 00:00 | CEVIMELINE HCL | [facility] | + + + + | 2022-08-22 00:00 | GABAPENTIN | [facility] | + + + + | 2022-09-05 00:00 | GABAPENTIN | [facility] | + + + + | 2021-06-24 00:00 | LEVOFLOXACIN | [facility] | + + + + | 2022-08-22 00:00 | NYSTATIN | [facility] | + + + + | 2016-12-23 00:00 | ONDANSETRON | [facility] | + + + + | 2021-03-19 00:00 | ONDANSETRON | [facility] | + + + + | 2019-05-08 00:00 | predniSONE | [facility] | + + + + | 2022-09-05 00:00 | predniSONE | [facility] | + + + + | 2022-09-05 00:00 | SUCRALFATE | [facility] | + + + + | 2022-09-05 00:00 | VALACYCLOVIR HCL | [facility] | + + + + | 2022-08-22 00:00 | VENLAFAXINE HCL | [facility] | + + + + | 2022-09-05 00:00 | VENLAFAXINE HCL | [facility] | + + + + | 2022-09-05 00:00 | PANTOPRAZOLE SODIUM | [facility] | + + + + | 2022-08-22 00:00 | SENNOSIDES | [facility] | + + + + | 2022-09-05 00:00 | SENNOSIDES | [facility] | + + + + | 2022-09-05 00:00 | Pregabalin | [facility] | + + + + | 2022-08-22 00:00 | TIZANIDINE HCL | [facility] | + + + + | 2022-09-05 00:00 | TIZANIDINE HCL | [facility] | + + + + | 2022-08-22 00:00 | PREGABALIN | [facility] | + + + + | 2022-08-22 00:00 | PREGABALIN | [facility] | + + + + | 2022-09-05 00:00 | PREGABALIN | [facility] | + + + + | 2022-08-22 00:00 | DULOXETINE HCL | [facility] | + + + + | 2022-09-05 00:00 | DULOXETINE HCL | [facility] | + + + + | 2022-08-22 00:00 | ATORVASTATIN | [facility] | + + + + | 2022-09-05 00:00 | ATORVASTATIN | [facility] | + + + + | 2022-08-22 00:00 | SITAGLIPTIN PHOSPHATE | [facility] | + + + + | 2022-09-05 00:00 | SITAGLIPTIN PHOSPHATE | [facility] | + + + + | 2022-08-23 00:00 | EPINEPHRINE | [facility] | + + + + | 2022-08-22 00:00 | CHOLECALCIFEROL (VITAMIN | [facility] | | | D3) | | + + + + | 2022-09-05 00:00 | CHOLECALCIFEROL (VITAMIN | [facility] | | | D3) | | + + + + | 2022-08-22 00:00 | ETANERCEPT | [facility] | + + + + | 2022-09-05 00:00 | ETANERCEPT | [facility] | + + + + | 2022-08-22 00:00 | CYCLOBENZAPRINE HCL | [facility] | + + + + | 2022-09-05 00:00 | CYCLOBENZAPRINE HCL | [facility] | + + + + | 2022-08-22 00:00 | TRAMADOL HCL | [facility] | + + + + | 2022-09-05 00:00 | TRAMADOL HCL | [facility] | + + + + | 2018-01-07 00:00 | TRAMADOL HCL | [facility] | + + + + | 2022-08-22 00:00 | DICLOFENAC SOD | [facility] | + + + + | 2022-09-05 00:00 | DICLOFENAC SOD | [facility] | + + + + | 2022-08-22 00:00 | AMITRIPTYLINE HCL | [facility] | + + + + | 2022-09-05 00:00 | AMITRIPTYLINE HCL | [facility] | + + + + | 2022-08-22 00:00 | METFORMIN HCL | [facility] | + + + + | 2022-09-05 00:00 | METFORMIN HCL | [facility] | + + + + | 2022-08-22 00:00 | Levothyroxine Sodium | [facility] | + + + + | 2022-09-05 00:00 | Levothyroxine Sodium | [facility] | + + + + | 2022-09-05 00:00 | LEVOTHYROXINE SODIUM | [facility] | + + + + | 2022-08-22 00:00 | Insulin Aspart Prot/Insuln | [facility] | | | Asp | | + + + + | 2022-09-05 00:00 | Insulin Aspart Prot/Insuln | [facility] | | | Asp | | + + + + | 2022-08-22 00:00 | buPROPion HCL | [facility] | + + + + | 2022-09-05 00:00 | buPROPion HCL | [facility] | + + + + Problems + + + + | date | description | facility | + + + + | 2021-03-19 00:00 | Infection due to severe | [facility] | | | acute respiratory syndrome | [...] | 2022-08-22 00:00 | Thrush | [facility] | + + + [...] + + + | 2022-08-22 20:19 | PUSH CONNECTOR ASSEMBLER (CURRENT) USE OF | [facility] | | | INSULIN | | + + + + | 2022-08-22 20:19 | OTHER LONG-TERM (CURRENT) | [facility] | | | DRUG THERAPY | | + + + + | 2022-08-22 20:19 | ALLERGY STATUS TO OTH | [facility] | | | DRUG/MEDS/BIOL SUBST STATUS | | | | | | + + + + | 2022-09-05 00:00 | Mucositis | [facility] | + + + + | 2022-09-05 00:00 | Erythema multiforme | [facility] | + + + + [...] + + | 2022-09-05 09:02 | OTHER PUSH CONNECTOR ASSEMBLER (CURRENT) | [facility] | | | [...]
[~2022-09-20 19:31] MED LIST changes: +CALCIUM PO; +CEVIMELINE HCL30 MG PO; +EPINEPHRIN0.3 MG/0.3 IM; +EPIPEN 2-P0.3 MG/0.3 IM; +HUMIRA PEN40 MG/0.4 SUB-Q; +LEVOTHYROXINE50 MCG PO; +NYSTATIN100000 UN1 PO; +OXYCODONE HCL5 MG PO; +PANTOPRAZOLE SO40 MG PO; +PREGABALIN100 MG PO; +TRELEGY ELLIPT1 EACH INH; +VALACYCLOVIR1000 MG PO; +VITAMIN D21250 MCG PO; -VITAMIN D32000 UNI1 PO; +[UNRECOGNIZED DRUG - OTHER] PO
--- OUTSIDE RECORDS SUMMARY | 2022-09-20 19:35 | XMS ---
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 EPadmini VISIT COUNT (12 MO.) [address] [place] [address] TOTAL 3 NOTE: Visits indicate total known visits. 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
[2022-09-20 20:18] LABS: HEMATOCRIT 30.7 % (35.0-50.0); HEMOGLOBIN 9.6 g/dL (12.0-18.0); MCHC 31.3 g/dl (30-36); MCV 95.7 fl (81-99); PLATELET COUNT 482 K/uL (140-440); RBC 3.21 M/ul (4.3-5.7); RDW 34.3 (10.5-15.0)
[2022-09-20 20:31] LABS: ALBUMIN 2.6 g/dL (3.4-5.0); ALBUMIN/GLOBULIN RATIO 0.6 (1.1-2.4); ANION GAP 17.4 (7-21); BILIRUBIN, TOTAL 0.6 ng/dL (0.2-1.0); BUN/CREATININE RATIO 17.92 (6.0-28.6); CALCIUM 9.1 mg/dL (8.5-10.1); CREATININE, SERUM 1.06 mg/dL (0.55-1.02); POTASSIUM 3.4 mmol/L (3.5-5.1); PROTEIN, TOTAL 6.9 g/dL (6.4-8.2)
[2022-09-20 20:31] LABS: BILIRUBIN, URINE NEGATIVE (negative); BLOOD/HGB, URINE TRACE-I (Negative); KETONE, URINE TRACE (Negative); LEUK ESTERASE, URINE TRACE (negative); NITRITE, URINE NEGATIVE (negative); PH, URINE 6.5 (5-7)
[2022-09-20 20:34] LABS: BANDS, MANUAL DIFF 7; LYMPHOCYTES, MANUAL DIFF 17; MONOCYTES, MANUAL DIFF 1; NEUTROPHILS, MANUAL DIFF 75
[2022-09-20 20:37] LABS: LACTIC ACID, BLOOD 3.5 mmol/L (0.4-2.0)
[2022-09-20 20:38] LABS: EPITHELIAL CELLS, URINE SQUAMOUS 1+ /lpf (0-1+); WHITE BLOOD CELLS, URINE >50 /HPF (0-5)
[2022-09-20 20:39] LABS: INFLUENZA B NAA NEGATIVE (NEGATIVE); RESPIRATORY SYNCYTIAL VIR NAA NEGATIVE (NEGATIVE)
[2022-09-20 20:39] LABS: BACTERIA, URINE 1+ /hpf (negative); CASTS, URINE NONE SEEN \\lpf; CRYSTALS, URINE NONE SEEN (0-1+); REFLEX CULTURE, URINE Yes (No)
[2022-09-20 22:02] LABS: LACTIC ACID, BLOOD 3.5 mmol/L (0.4-2.0)
[2022-09-20 23:45] VITALS: BP 96/55
[2022-09-20 23:51] VITALS: BP 90/58
[2022-09-21] VITALS (21 sets, daily range): BP systolic 81–143; BP diastolic 46–90
--- NOTE | 2022-09-21 01:19 | NUR ---
PT NEW ADMIT TO ICU. FULL PT REPORT OBTAINED FROM MAYNOR ADAM RN. PT TRANSFERRED FROM [facility] TO HOSPITAL BED WITHOUT PROBLEMS. PT IS A&O X 4 WITH A GCS OF 15. PT MOVES ALL EXTREMITIES WITH PURPOSE. V/S OBTAINED AND SAFETY CHECK PERFORMED. PIVS ASSESSED AND FOUND TO BE PATENT. PT ABLE TO MOVES SELF FROM SIDE TO SIDE AND EDUCATED REGARDING IMPORTANCE OF SKIN INTEGRITY. 2 RN SKIN CHECK PERFORME. MD CONSULTED REGARDING HYPOTENSION. PT WITH MAP IN THE 50S. DR. WEATHERS IS AWARE AND WANTS TO KEEP MAP ABOVE 58.
[2022-09-21 05:38] LABS: MCHC 31.4 g/dl (30-36)
[2022-09-21 05:41] LABS: HEMATOCRIT 30.9 % (35.0-50.0); HEMOGLOBIN 9.7 g/dL (12.0-18.0); MCH 29.7 (27-36); MCV 94.6 fl (81-99); PLATELET COUNT 354 K/uL (140-440); RBC 3.27 M/ul (4.3-5.7); RDW 34.6 (10.5-15.0)
[2022-09-21 05:54] LABS: ALBUMIN 2.2 g/dL (3.4-5.0); ALBUMIN/GLOBULIN RATIO 0.55 (1.1-2.4); ANION GAP 11.6 (7-21); BILIRUBIN, TOTAL 0.6 ng/dL (0.2-1.0); BUN/CREATININE RATIO 16.3 (6.0-28.6); CALCIUM 8.8 mg/dL (8.5-10.1); CREATININE, SERUM 0.92 mg/dL (0.55-1.02); POTASSIUM 3.6 mmol/L (3.5-5.1); PROTEIN, TOTAL 6.2 g/dL (6.4-8.2)
[2022-09-21 05:57] LABS: BANDS, MANUAL DIFF 7; LYMPHOCYTES, MANUAL DIFF 18; MONOCYTES, MANUAL DIFF 3; NEUTROPHILS, MANUAL DIFF 72
--- NOTE | 2022-09-21 06:17 | NUR ---
PT REMAINS CONSCIOUS, ALERT AND ORIENTED X 4 WITH A GCS OF 15. PT HAS BEEN IN A NSR, NORMOTENSIVE AND A-FEBRILE. PT WITH ACUTE ONSET L. FLANK PAIN AND HEADACHE THROUGHOUT THE NIGHT. MD CONSULTED MULTIPLE TIMES AND NEWS ORDERS OBTAINED. PT WITH ADEQUATE U/O. LAST BM NOTED ON 09/20, BS ARE HYPOACTIVE. LABS: K 3.6, CREATININE .92, WBC REMAINS CRITICALLY ELEVATED BUT IMPROVED TO 48.8, H/H STABLE AND BLOOD/ URINE CULTURES STILL PENDING.
--- NOTE | 2022-09-21 08:00 | NUR ---
PT LAYING ON SIDE IN BED TEARFUL WITH PAIN. STATES HER BACK IS CRAMPING RELATED TO MISSING DOSES OF FLEXARIL. STATES MORPHINE HELPED "KIDNEY PAIN". ADEQUATE ORAL INTAKE AND URINE OUTPUT. PT STATES SHE FEELS CONSTIPATED, TOOK MIRILAX AT HOME YESTERDAY, BM YESTERDAY WELL. VERBAL ORDERS RECEIVED BY MD FOR ONE TIME ATIVAN DOSE AND RESTART FLEXARIL DOSE.
--- NOTE | 2022-09-21 09:00 | NUR ---
Spoke with Hillary. Sister, Mague, in room. Hillary lives in an apartment. Her daughter and grandchildren live with her. She has 2 steps into her apartment and does not have any issues getting into her home. She and daughter share shopping, cooking, and cleaning chores. Her sister also assist when needed. Pt uses a CPAP and a nebulizier. Pt drives. She is disabled. She has resources for food stamps. She is aware of [employer] but does not feel she needs services from them. She is aware of the food [employer] but does not use. I offered a list for food assistance, she denies need. Pt plans on dc to home when cleared medically. Sister states she will help, Both deny needs.
--- NOTE | 2022-09-21 09:19 | NUR ---
PT RESTING IN BED WITH EYES CLOSED, BODY RELAXED POSISTION. RATES PAIN 05/22. VS WNL.
--- NOTE | 2022-09-21 09:50 | NUR ---
PATIENT UP TO BSC FOR VOID. BACK TO BED WITH FAMILY MEMBERS ASSISTANCE. PATIENT RESTING AT THIS TIME. FRESH ICE WATER PROVIDED.
--- NOTE | 2022-09-21 10:00 | NUR ---
PT RESTING IN BED WITH EYES CLOSED, RR EVEN AND UNLABORED, APPEARS COMFORTABLE. IV PUMP ALARMING, ADDRESSED. CALL LIGHT IN REACH, FRIEND AT BEDSIDE.
--- NOTE | 2022-09-21 11:40 | NUR ---
PATIENT RESTING IN BED, EYES CLOSED. WOKE TO VOICE. VITALS CHARTED. CALL LIGHT IN EASY REACH. SISTER AT BEDSIDE.
--- NOTE | 2022-09-21 11:46 | NUR ---
PT CONTINUES TO REST IN BED, RR EVEN AND UNLABORED. HR ELEVATED WITH PERSISTANT LOW GRADE FEVER - REQUEST TO MD FOR PRN TYLENOL.
--- NOTE | 2022-09-21 11:48 | NUR ---
PT SLEEPING IN BED. DID NOT AWAKEN DRING MY CONVERSATION WITH SISTER MARY WHO WAS IN CHAIR. I EXERCISED MINISTRY OF PRESENCE SISTER AND I TALKED OF SHARED CONNECTIONS AND LIFE EXPERIENCES. GAVE GUIDEPOST AND CONTACT CARD. SISTER CONSENTED TO PRAYER. PRAYED FOR HEALING AND ONGOING ONGOING BLESSING.
--- NOTE | 2022-09-21 12:32 | NUR ---
PATIENT UP TO BSC WITH SBA. 600 OUTPUT. PATIENT BACK TO BED LUNCH PROVIDED, CALL LIGHT IN EASY REACH
[2022-09-21] MEDS ORDERED: LOSARTAN POTASS25 MG PO (13:05)
[2022-09-21] MEDS ORDERED: CETIRIZINE HCL10 MG PO (13:06)
--- NOTE | 2022-09-21 14:00 | NUR ---
PATIENT AMBULATING QUILES WITH THIS STORES NAVAL AND RN. PATIENT TOLERATED WELL, STEADY ON HER FEET. FAMILY IN ROOM.
--- NOTE | 2022-09-21 14:00 | NUR ---
PT ASSISTED TO BEDSIDE COMMODE AND BACK TO BED. PT COMPLAINT OF 4/10 PAIN. PT FAMILY AT BEDSIDE, CALL LIGHT WITHIN REACH.
[2022-09-21] MEDS ORDERED: INSULIN LI100 UNIT/2 SUB-Q (14:32)
[2022-09-21] MEDS ORDERED: SUCRALFATE1 GM/10 ML PO (14:35)
[2022-09-21] MEDS ORDERED: PREDNISONE10 MG PO (14:37)
[2022-09-21] MEDS ORDERED: VALACYCLOVIR500 MG PO (14:39)
[2022-09-21] MEDS ORDERED: FLUTICASONE PRO16 GM NAS (14:40)
[2022-09-21] MEDS ORDERED: VENTOLIN HFA18 GM INH (14:43)
[2022-09-21] MEDS ORDERED: TRESIBA FL200 UNIT/1 SUB-Q (14:51)
[2022-09-21] MEDS ORDERED: COLCRYS0.6 MG PO (14:54)
[2022-09-21] MEDS ORDERED: CYCLOBENZAPRINE5 MG PO (14:56)
[2022-09-21] MEDS ORDERED: ATORVASTATIN CA40 MG PO (15:15)
[2022-09-21] MEDS ORDERED: GLUCAGON EMERGEN1 MG IM (15:18)
--- NOTE | 2022-09-21 15:18 | NUR ---
MED REC COMPLETE
[2022-09-21 15:27] LABS: HEMOGLOBIN 8.9 g/dL (12.0-18.0); RBC 2.97 M/ul (4.3-5.7)
[2022-09-21 15:28] LABS: HEMATOCRIT 27.9 % (35.0-50.0); MCH 29.9 (27-36); MCHC 31.8 g/dl (30-36); MCV 93.9 fl (81-99); PLATELET COUNT 291 K/uL (140-440); RDW 34.5 (10.5-15.0)
--- NOTE | 2022-09-21 15:38 | NUR ---
notified of critical wbc value - no new orders received.
[2022-09-21 15:44] LABS: EOSINOPHILS, MANUAL DIFF 1; LYMPHOCYTES, MANUAL DIFF 23; MONOCYTES, MANUAL DIFF 5; NEUTROPHILS, MANUAL DIFF 71
--- NOTE | 2022-09-21 15:58 | EKG ---
[facility] [address] [place], [place] [address] Signed Sinus tachycardia Otherwise normal ECG When compared with ECG of 24-JUN-2021 19:10, No significant change was found Confirmed by YESSICA WEATHERS MD ([id number]) on 09/21/2022 3:58:14 PM Electronically Signed By: YESSICA WEATHERS 09/21/22 1558 PATIENT NAME: ENEDELIA GARCIA Electrocardiogram DATE OF : 71 PHYSICIAN: YESSICA WEATHERS REPORT #: [id number] REPORT IS CONFIDENTIAL AND NOT TO BE RELEASED WITHOUT AUTHORIZATION
--- NOTE | 2022-09-21 17:33 | NUR ---
PT RESTING IN BED ALERT AND ATTEMTPING TO EAT DINNER. FOOD PROVIDED TOO ACIDIC FOR PT - MOTHER TO BRING IN SUBSTITUTE DINNER. 3 UNITS ADMINISTERED FOR INSULIN COVERAGE PER SS. PT RATES PAIN 4/10 DENIES FURTHER NEEDS FOR PAIN AT THIS TIME.
--- NOTE | 2022-09-21 20:00 | NUR ---
RECEIVED REPORT FROM BEBETO SHI; ALL QUESTIONS AND CONCERNS WHERE ADDRESSED AT THIS TIME; PT IS A&0, HR IN THE 100'S, SINUS TACH, BP STABLE, FEBRILE, NORCO GIVEN, EDEMA TO BLE, WILL CONTINUE TO MONITOR AND NOTIFY PROVIDER WITH ANY CHANGES IN PT STATUS
--- NOTE | 2022-09-22 00:10 | NUR ---
PT UP TO BSC, FEBRILE, PLACED ICE PACKS AND TURNED TEMP IN ROOM DOWN, WILL REASSESS TEMP, VSS, WILL CONTINUE TO MONITOR
[2022-09-22 05:17] LABS: MCHC 31.8 g/dl (30-36); PLATELET COUNT 235 K/uL (140-440); RDW 34.1 (10.5-15.0)
[2022-09-22 05:18] LABS: HEMATOCRIT 27.6 % (35.0-50.0); HEMOGLOBIN 8.8 g/dL (12.0-18.0); MCH 30.3 (27-36); MCV 95.2 fl (81-99)
[2022-09-22 05:24] LABS: BANDS, MANUAL DIFF 8; BASOPHILS, MANUAL DIFF 1; LYMPHOCYTES, MANUAL DIFF 27; MONOCYTES, MANUAL DIFF 4; NEUTROPHILS, MANUAL DIFF 60
[2022-09-22 05:26] LABS: ANION GAP 9.1 (7-21); CALCIUM 8.5 mg/dL (8.5-10.1); CREATININE, SERUM 1.3 mg/dL (0.55-1.02); POTASSIUM 4.1 mmol/L (3.5-5.1)
[2022-09-22 06:28] VITALS: BP 101/70
--- NOTE | 2022-09-22 07:20 | NUR ---
PT IS UP AND IN THE CHAIR, RATES PAIN 3/10, VSS, FEVER HAS COME DOWN BUT STILL FEBRILE, LABS IMPROVING; REPORT GIVEN ALL QUESTIONS AND CONCERNS ADDRESSED AT THIS TIME
--- NOTE | 2022-09-22 07:30 | NUR ---
REPORT RECIEVED FROM CHECK AND TRANSFER BEADER RN. PATIENT UP TO CAMMODE ON HER OWN TOLERATED OVER NIGHT. PER REPORT PATIENT FEELS BETTER THIS AM.
[2022-09-22 08:19] VITALS: BP 111/64
--- NOTE | 2022-09-22 08:28 | NUR ---
PATIENT SITTING UP IN RECLINER. BREAKFAST AND PATIENT ABLE TO SELF TRANSFER BACK AND FORTH FROM CHAIR TO BSC NEEDED. PLAN FOR A BEDBATH OR SHOWER TODAY. CALL LIGHT IN EASY REACH.
--- NOTE | 2022-09-22 09:30 | NUR ---
IN TO SEE CUONG. PER MD PATIENT WILL BE STARTED BACK ON SOME HOME MEDICATIONS INCLUDING PATIENTS PREDNISONE. PATIENT STATES "I FEEL SO MUCH BETTER TODAY". PATIENT LUNCG SOUNDS CLEAR AND ON RA, BOWEL TONES HYPOACTIVE. PATIENT REPORTS 3/10 FLANK PAIN. PATIENT UP TO CAMMODE ON HER OWN AND IS TOELRATING WELL. 1+ EDEMA NOTED IN BLE. ENCOURAGED AMBULATION AND WHEN PATIENT IS SITTING TO ELEVATE HER FEET. PATIENT UP EATING. FRESH WATER PROVIDED. PATIENT WOULD LIKE A SHOWER AFTER LUNCH.
--- NOTE | 2022-09-22 10:09 | NUR ---
PT UP AND ON COMMODE. DID NOT DISTURB. PRAYED SILENT PRAYER FOR HEALING FROM OUTSIDE ROOM TO GIVE PATIENT PRIVACY.
--- NOTE | 2022-09-22 10:35 | NUR ---
PATIENT UP TO BR WITH SBA(TO HELP WITH IV POLE AND CORDS) SMALL FORMED BM. PATIENT BACK INTO RECLINER. CALL LIGHT IN EASY REACH. MOTHER IN ROOM. NO OTHER NEEDS AT THIS TIME
--- NOTE | 2022-09-22 11:47 | NUR ---
TYLENOL ADMINISTERED FOR PATIENT COMPLAINT ON HEADACHE 05/22. PATIENT LAYING IN BED TAKING NAP AT THIS TIME. PATIENT DENIES ANY OTHER NEEDS AT THIS TIME.
[2022-09-22 12:15] VITALS: BP 118/67
--- NOTE | 2022-09-22 12:26 | NUR ---
PATIENT AWAKE AT SIDE OF BED. VITALS AND I&OS CHARTED. LUNCH PROVIDED. NO OTHER NEEDS AT THIS TIME.
--- NOTE | 2022-09-22 13:00 | NUR ---
PATIENTS HEADACHE IMPROVED WITH TYLENOL AND ICE TEA. PATIENT REPORTS DRINKING CAFFINE AT HOME AND HASNT HAD ANY HERE. PATIENT UP TO THE CHAIR AND FINISHED WITH LUNCH AT THIS TIME.
--- NOTE | 2022-09-22 13:30 | NUR ---
TRANSFER ORDERS PER MD WEATHERS CONTINUED UPON TRANSFER TO MS. NO TELE PER MD.
--- NOTE | 2022-09-22 14:00 | NUR ---
PATIENT INTO SHOWER, NO ASSISTANCE NEEDED OTHER THAN SETTING UP ITEMS. PATIENT ABLE TO WASH BODY AND HAIR HERSELF. THIS PERSONNEL TECHNICIAN STANDING BY IF NEEDED. PATIENT INTO RECLAINER AT THIS TIME. CALL LIGHT AND PERSONAL PHONE IN [facility].
--- NOTE | 2022-09-22 14:15 | NUR ---
WAYNE TRUONG IN WITH PATIENT TO ASSIST WITH A SHOWER. PATIENTS IV STOPPED AND IVS COVERED FOR SHOWER.
--- NOTE | 2022-09-22 15:00 | NUR ---
PATIENT REPORT GIVEN TO HANSA TATE. PATIENT TRANSFERED TO ROOM 109 WITH ALL BELONGIGNS AND MEDICATIONS .PATIENTS CELL PHONE AND SECURITY SCREENER SENT WITH PATIENT. PATIENT FINISHED SHOWERING AND DIONNE BLACK ASSISTED PATIENT TO THE CHAIR WITH NO ISSUES. PATIENT MEDICATIONS STARTED AND PATIENT DENIES ANY OTHER NEEDS AT THIS TIME,. APTIENT HAS FAMILY AT THE BEDSIDE. PLAN OF CARE REVIEWED. CALL LIGHT IN [facility]. HANSA IN TO SEE PATIENT.
--- NOTE | 2022-09-22 16:07 | NUR ---
PATIENT IN BED WATCHING TV, NO ACUTE DISTRESS. PATIENT REPORTS SHE IS DOING WELL AT THIS TIME, NO DISTRESS. PT HAS NO NEEDS AT THIS TIME. IV SITE IS PATENT.
--- NOTE | 2022-09-22 19:31 | NUR ---
PT SITTING ON EDGE OF BED WATCHING TV. NO ACUTE SIGNS OF DISTRESS. CALL LIGHT WITHIN REACH. SAFETY PRECAUTIONS IN PLACE. NO NEEDS EXPRRESSED BY PT AT THIS TIME.
[2022-09-22 20:00] VITALS: BP 125/80
--- NOTE | 2022-09-22 20:10 | NUR ---
PT BLOOD SUGAR 414. PT IN NO DISTRESS AND OTHER VITAL SIGNS WNL. DR. HERNANDEZ NOTIFIED OF PT BLOOD SUGAR. SCHEDULED INSULIN GIVEN. NO NEW ORDERS AT THIS TIME.
[2022-09-23 02:00] VITALS: BP 98/66
[2022-09-23 05:09] VITALS: BP 102/63
[2022-09-23 05:35] LABS: BASOPHILS 0.7 % (0-2); EOSINOPHILS 0.4 % (0-6); HEMOGLOBIN 9.1 g/dL (12.0-18.0); LYMPHOCYTES 16.2 % (24-44); MCH 29.9 (27-36); MCHC 31.3 g/dl (30-36); MCV 95.6 fl (81-99); MONOCYTES 7.9 % (0-12); NEUTROPHILS 74.8 % (39-80); PLATELET COUNT 210 K/uL (140-440); RBC 3.04 M/ul (4.3-5.7); RDW 33.8 (10.5-15.0)
[2022-09-23 05:46] LABS: ANION GAP 12.9 (7-21); BUN/CREATININE RATIO 13.08 (6.0-28.6); CALCIUM 9.2 mg/dL (8.5-10.1); CREATININE, SERUM 1.07 mg/dL (0.55-1.02); POTASSIUM 3.9 mmol/L (3.5-5.1)
--- NOTE | 2022-09-23 07:12 | NUR ---
REPORT RECEIVED FROM BAG BUILDER RN, ALL QUESTIONS ANSWERED. PT RESTING IN BED WITH EYES CLOSED, RESPIRATIONS EVEN AND UNLABORED. CALL LIGHT IN REACH.
--- NOTE | 2022-09-23 08:56 | NUR ---
MORNING ASSESSMENT COMPLETE. PT SITTING UP IN BED EATING BREAKFAST WITH VISITOR AT BEDSIDE. MORNING MEDICATION ADMINISTERED, PT REFUSED PREDNISONE DOSE THIS AM DUE TO "IT CAUSES MOUTH SORES" PT WOULD LIKE TO DISCUSS MEDICATION WITH PHYSICIAN PRIOR TO TAKING. ALL OTHER MEDS GIVEN. PT DENIES PAIN AT THIS TIME. CALL LIGHT IN REACH.
--- NOTE | 2022-09-23 09:23 | NUR ---
PT AMBULATING HALLWAY AT THIS TIME.
[2022-09-23 09:58] VITALS: BP 97/58
[2022-09-23 13:38] VITALS: BP 109/64
--- NOTE | 2022-09-23 15:38 | NUR ---
AFTERNOON ASSESSMENT COMPLETE. PT WATCHING TV IN BED, EATING [employer], DISCUSSED 60G CARB DIET. PT VERBALIZED UNDERSTANDING. PT DENIES PAIN OR NAUSEA AT THIS TIME. DENIES ALL OTHER NEEDS. CALL LIGHT IN REACH.
[2022-09-23 17:52] VITALS: BP 112/72
--- NOTE | 2022-09-23 19:23 | NUR ---
REPORT RECEIVED FROM DAY SHIFT RN. PT LYING IN BED ALERT AND ORIENTED. DENIES NEEDS. WHITE BOARD UPDATED. CALL LIGHT IN REACH.
--- NOTE | 2022-09-23 19:27 | NUR ---
PT REPORTS 4/10 HEADACHE, PRN TYLENOL PROVIDED. NO OTHER NEEDS. CALL LIGHT IN REACH.
[2022-09-23 20:52] VITALS: BP 119/74
--- NOTE | 2022-09-23 21:59 | NUR ---
EVENING ASSESSMENT COMPLETE. SCHEDULED MEDS ADMIN PER EMAR. BLOOD SUGAR 377. NOTIFIED. NO NEW ORDERS AT THIS TIME. SLIDING SCALE INSULIN ADMIN PER ORDER. PT DENIES PAIN OR NAUSEA. CPAP AT THE BEDSIDE. PT DENIES QUESTIONS OR CONCERNS. CALL LIGHT IN REACH.
--- NOTE | 2022-09-24 00:25 | NUR ---
PT RESTING IN BED WITH EYES CLOSED. CPAP IN PLACE. CALL LIGHT IN REACH.
--- NOTE | 2022-09-24 01:52 | NUR ---
PT RESTING IN BED WITH EYES CLOSED. RESPIRATIONS EVEN. BED ALARM FOR SAFETY. CALL LIGHT IN REACH.
[2022-09-24 04:13] VITALS: BP 108/69
--- NOTE | 2022-09-24 04:27 | NUR ---
CALL LIGHT ANSWERED. IV PUMP ALARMING. NEW BAG IVF INFUSING WNL. VS AND I&O OBTAINED. ASSESSMENT UNCHANGED. PT DENIES PAIN OR NAUSEA. COFFEE PROVIDED. NO FURTHER NEEDS.
[2022-09-24 04:45] VITALS: BP 153/66
[2022-09-24 05:31] LABS: MCHC 31.8 g/dl (30-36); RBC 2.88 M/ul (4.3-5.7)
[2022-09-24 05:32] LABS: BASOPHILS 0.6 % (0-2); EOSINOPHILS 2.7 % (0-6); HEMATOCRIT 27.3 % (35.0-50.0); HEMOGLOBIN 8.7 g/dL (12.0-18.0); LYMPHOCYTES 24.4 % (24-44); MCH 30.2 (27-36); MCV 94.9 fl (81-99); MONOCYTES 8.3 % (0-12); PLATELET COUNT 229 K/uL (140-440); RDW 33.6 (10.5-15.0)
[2022-09-24 05:42] LABS: ANION GAP 10.9 (7-21); BUN/CREATININE RATIO 14.7 (6.0-28.6); CALCIUM 8.8 mg/dL (8.5-10.1); CREATININE, SERUM 1.02 mg/dL (0.55-1.02); POTASSIUM 3.9 mmol/L (3.5-5.1)
--- NOTE | 2022-09-24 07:15 | NUR ---
REPORT RECEIVED FROM NIGHT RN, ALL QUESTIONS ANSWERED. PT RESTING IN BED. CALL LIGHT IN REACH.
--- NOTE | 2022-09-24 08:57 | NUR ---
MORNING ASSESSMENT COMPLETE. PT AWAKE IN BED EATING BREAKFAST. ASSESSMENT WNL. MORNING MEDICATIONS ADMINISTERED. PT DECLINED TAKING PREDNISONE. PT DENIES PAIN OR OTHER NEEDS AT THIS TIME. CALL LIGHT IN REACH.
[2022-09-24] MEDS ORDERED: LEVOFLOXACIN750 MG PO (09:30)
[2022-09-24 10:37] VITALS: BP 113/77
[2022-09-25 08:38] LABS: IRON,SERUM OR PLASMA 56 ug/dL (28-170)
[2022-09-25 18:36] LABS: FERRITIN 146 ng/mL (13-150)
== END 2022-09-24 10:50 | disposition home or self-care (01) | DRG 872 ==
LOC: ED 19:31 → CCU 22:54 → MS 22:54 → CCU 09-21 15:48 → MS 09-22 15:00
PROVIDERS: Internal Medicine; ADMIT Internal Medicine; ATTEND Family Medicine
DX: A41.51 Sepsis due to Escherichia coli [E. coli] (principal); N12 Tubulo-interstitial nephritis, not specified as acute or chronic; E24.9 Cushing's syndrome, unspecified; Z68.41 Body mass index [BMI] 40.0-44.9, adult; E11.9 Type 2 diabetes mellitus without complications; I95.9 Hypotension, unspecified; L51.9 Erythema multiforme, unspecified; E03.9 Hypothyroidism, unspecified; K59.00 Constipation, unspecified; K44.9 Diaphragmatic hernia without obstruction or gangrene; D64.9 Anemia, unspecified; K21.9 Gastro-esophageal reflux disease without esophagitis; F17.210 Nicotine dependence, cigarettes, uncomplicated; Z20.822 Contact with and (suspected) exposure to COVID-19; E66.9 Obesity, unspecified; K12.1 Other forms of stomatitis; L40.50 Arthropathic psoriasis, unspecified; M79.7 Fibromyalgia; D75.1 Secondary polycythemia; J44.9 Chronic obstructive pulmonary disease, unspecified; M35.9 Systemic involvement of connective tissue, unspecified; K64.9 Unspecified hemorrhoids; Z90.710 Acquired absence of both cervix and uterus; Z79.52 Long term (current) use of systemic steroids; Z79.899 Other long term (current) drug therapy; Z90.49 Acquired absence of other specified parts of digestive tract; Z98.51 Tubal ligation status; Z98.890 Other specified postprocedural states; Z88.8 Allergy status to other drugs, medicaments and biological substances; Z79.2 Long term (current) use of antibiotics; Z79.891 Long term (current) use of opiate analgesic; Z79.4 Long term (current) use of insulin; Z79.02 Long term (current) use of antithrombotics/antiplatelets; Z79.811 Long term (current) use of aromatase inhibitors
CPT/HCPCS: 36415; 51701; 71045; 74177; 80048; 80053; 81001; 82728; 83605; 85025; 85060; 87040; 87077; 87088; 87186; 87502; 93005; 93010; 94660; 99285-25; A9270; J1815; J1956; J2060; J2270; J2405; J2543; J7121; J7512; Q9967; U0002

== ENCOUNTER 2022-10-18 07:35 | Emergency (ER) | payer OTHER ==
[~2022-10-18] VITALS: Ht 160 cm; Wt 108.1 kg
--- OUTSIDE RECORDS SUMMARY | ~2022-10-18 | XMS | Continuity of Care Document ---
Demographics + + + | Address | [address] | | | [place] [address] | + + + | Preferred Language | Unknown | + + + | Marital Status | Never | + + + | Orthodox Affiliation | Unknown | + + + | Race | White | + + + | Ethnic Group | Not or | + + + Author + + + | Author | [facility] | + + + | Organization | [facility] | + + + | Address | [address] | | | [place] [address] | + + + | Phone | | + + + Care Team Providers + + + + | Care Coding Spec Name | Role | Phone | + + + + Unavailable | Unavailable | + + + + Unavailable | Unavailable | + + + + Unavailable | Unavailable | + + + + Unavailable | Unavailable | + + + + Allergies and Intolerances + + + + + + | date | description | facility | reaction | severity | + + + + + + | (no date) | Risperidone | [facility] | (no reaction) | (no severity) | [facility] | | | + + + + + + | (no date) | Risperidone | [facility] | (no reaction) | (no severity) | | [facility] | | | + + + + + + | (no date) | risperidone | [facility] | (no reaction) | (no severity) | + + + + + + | (no date) | Risperidone | [facility] | (no reaction) | (no severity) | | [facility] | | | + + + + + + Encounters No information. Functional Status No information. Immunizations No information. Medications + + + + | date | description | facility | + + + + | 2022-09-24 00:00 | CETIRIZINE HCL | [facility] | + + + + | 2022-08-22 00:00 | FLUOXETINE HCL | [facility] | + + + + | 2022-09-05 00:00 | FLUOXETINE HCL | [facility] | + + + + | 2022-09-24 00:00 | FLUOXETINE HCL | [facility] | + + + + | 2022-09-05 00:00 | OXYCODONE HCL | [facility] | + + + + | 2022-08-22 00:00 | OXYCODONE | [facility] | | | HCL/ACETAMINOPHEN | | + + + + | 2022-09-05 00:00 | OXYCODONE | [facility] | | | HCL/ACETAMINOPHEN | | + + + + | 2022-09-24 00:00 | OXYCODONE | [facility] | | | HCL/ACETAMINOPHEN | | + + + + | 2022-08-22 00:00 | METHOTREXATE SODIUM | [facility] | + + + + | 2022-09-05 00:00 | METHOTREXATE SODIUM | [facility] | + + + + | 2022-09-24 00:00 | METHOTREXATE SODIUM | [facility] | + + + + | 2022-08-22 00:00 | NAPROXEN SODIUM | [facility] | + + + + | 2022-09-05 00:00 | NAPROXEN SODIUM | [facility] | + + + + | 2022-09-24 00:00 | NAPROXEN SODIUM | [facility] | + + + + | 2022-09-05 00:00 | Ergocalciferol (Vitamin | [facility] | | | D2) | | + + + + | 2022-09-24 00:00 | Ergocalciferol (Vitamin | [facility] | | | D2) | | + + + + | 2022-08-22 00:00 | DULAGLUTIDE | [facility] | + + + + | 2022-09-05 00:00 | DULAGLUTIDE | [facility] | + + + + | 2022-09-24 00:00 | DULAGLUTIDE | [facility] | + + + + | 2022-09-24 00:00 | Insulin Lispro | [facility] | + + + + | 2022-09-24 00:00 | INSULIN DEGLUDEC | [facility] | + + + + | 2022-08-22 00:00 | Insulin | [facility] | | | Glanadiae,Hum.rec.anlog | | + + + + | 2022-09-05 00:00 | Insulin | [facility] | | | Glaredvine,Hum.rec.anlog | | + + + + | 2022-09-24 00:00 | FLUTICASONE PROPIONATE 50 | [facility] | | | MCG | | + + + + | 2022-09-05 00:00 | EPINEPHRINE | [facility] | + + + + | 2022-09-24 00:00 | EPINEPHRINE | [facility] | + + + + | 2022-09-05 00:00 | Adalimumab | [facility] | + + + + | 2022-09-24 00:00 | Adalimumab | [facility] | + + + + | 2022-08-22 00:00 | Adalimumab | [facility] | + + + + | 2022-09-05 00:00 | Adalimumab | [facility] | + + + + | 2022-09-05 00:00 | | [facility] | | | Fluticasone/Umeclidin/Vilan | | | | ter | | + + + + | 2022-09-24 00:00 | | [facility] | | | Fluticasone/Umeclidin/Vilan | | | | ter | | + + + + | 2022-08-22 00:00 | IBUPROFEN | [facility] | + + + + | 2022-09-05 00:00 | IBUPROFEN | [facility] | + + + + | 2022-09-24 00:00 | IBUPROFEN | [facility] | + + + + | 2022-08-22 00:00 | OMEPRAZOLE | [facility] | + + + + | 2022-09-24 00:00 | predniSONE | [facility] | + + + + | 2022-09-24 00:00 | Calcium Carbonate/Vitamin | [facility] | | | D3 | | + + + + | 2019-05-08 00:00 | AZITHROMYCIN | [facility] | + + + + | 2019-05-08 00:00 | AZITHROMYCIN | [facility] | + + + + | 2022-08-22 00:00 | PIOGLITAZONE HCL | [facility] | + + + + | 2022-09-05 00:00 | PIOGLITAZONE HCL | [facility] | + + + + | 2022-09-24 00:00 | PIOGLITAZONE HCL | [facility] | + + + + | 2022-08-22 00:00 | CLOTRIMAZOLE/BETAMETHASONE | [facility] | | | DIP | | + + + + | 2022-09-05 00:00 | CLOTRIMAZOLE/BETAMETHASONE | [facility] | | | DIP | | + + + + | 2022-09-24 00:00 | CLOTRIMAZOLE/BETAMETHASONE | [facility] | | | DIP | | + + + + | 2022-08-22 00:00 | CEPHALEXIN | [facility] | + + + + | 2022-09-05 00:00 | CEPHALEXIN | [facility] | + + + + | 2022-09-24 00:00 | CEPHALEXIN | [facility] | + + + + | 2022-09-05 00:00 | CEVIMELINE HCL | [facility] | + + + + | 2022-09-24 00:00 | CEVIMELINE HCL | [facility] | + + + + | 2022-08-22 00:00 | GABAPENTIN | [facility] | + + + + | 2022-09-05 00:00 | GABAPENTIN | [facility] | + + + + | 2022-09-24 00:00 | GABAPENTIN | [facility] | + + + + | 2022-09-24 00:00 | GLUCAGON,HUMAN RECOMBINANT | [facility] | | | | | + + + + | 2021-06-24 00:00 | LEVOFLOXACIN | [facility] | + + + + | 2021-06-24 00:00 | LEVOFLOXACIN | [facility] | + + + + | 2022-09-24 00:00 | LEVOFLOXACIN | [facility] | + + + + | 2022-08-22 00:00 | NYSTATIN | [facility] | + + + + | 2016-12-23 00:00 | ONDANSETRON | [facility] | + + + + | 2016-12-23 00:00 | ONDANSETRON | [facility] | + + + + | 2021-03-19 00:00 | ONDANSETRON | [facility] | + + + + | 2019-05-08 00:00 | predniSONE | [facility] | + + + + | 2019-05-08 00:00 | predniSONE | [facility] | + + + + | 2022-09-05 00:00 | predniSONE | [facility] | + + + + | 2022-09-05 00:00 | SUCRALFATE | [facility] | + + + + | 2022-09-05 00:00 | VALACYCLOVIR HCL | [facility] | + + + + | 2022-09-24 00:00 | VALACYCLOVIR HCL | [facility] | + + + + | 2022-08-22 00:00 | VENLAFAXINE HCL | [facility] | + + + + | 2022-09-05 00:00 | VENLAFAXINE HCL | [facility] | + + + + | 2022-09-24 00:00 | VENLAFAXINE HCL | [facility] | + + + + 2022-09-05 00:00 | PANTOPRAZOLE SODIUM | [facility] | + + + + | 2022-09-24 00:00 | PANTOPRAZOLE SODIUM | [facility] | + + + + | 2022-08-22 00:00 | SENNOSIDES | [facility] | + + + + | 2022-09-05 00:00 | SENNOSIDES | [facility] | + + + + | 2022-09-24 00:00 | SENNOSIDES | [facility] | + + + + | 2022-09-05 00:00 | Pregabalin | [facility] | + + + + | 2022-09-24 00:00 | Pregabalin | [facility] | + + + + | 2022-08-22 00:00 | TIZANIDINE HCL | [facility] | + + + + | 2022-09-05 00:00 | TIZANIDINE HCL | [facility] | + + + + | 2022-09-24 00:00 | TIZANIDINE HCL | [facility] | + + + + | 2022-08-22 00:00 | PREGABALIN | [facility] | + + + + | 2022-08-22 00:00 | PREGABALIN | [facility] | + + + + | 2022-09-05 00:00 | PREGABALIN | [facility] | + + + + | 2022-09-24 00:00 | PREGABALIN | [facility] | + + + + | 2022-08-22 00:00 | DULOXETINE HCL | [facility] | + + + + | 2022-09-05 00:00 | DULOXETINE HCL | [facility] | + + + + | 2022-09-24 00:00 | DULOXETINE HCL | [facility] | + + + + | 2022-09-24 00:00 | ATORVASTATIN CALCIUM | [facility] | + + + + | 2022-08-22 00:00 | ATORVASTATIN | [facility] | + + + + | 2022-09-05 00:00 | ATORVASTATIN | [facility] | + + + + | 2022-08-22 00:00 | SITAGLIPTIN PHOSPHATE | [facility] | + + + + | 2022-09-05 00:00 | SITAGLIPTIN PHOSPHATE | [facility] | + + + + | 2022-09-24 00:00 | SITAGLIPTIN PHOSPHATE | [facility] | + + + + | 2022-08-23 00:00 | EPINEPHRINE | [facility] | + + + + | 2022-08-22 00:00 | CHOLECALCIFEROL (VITAMIN | [facility] | | | D3) | | + + + + | 2022-09-05 00:00 | CHOLECALCIFEROL (VITAMIN | [facility] | | | D3) | | + + + + | 2022-08-22 00:00 | ETANERCEPT | [facility] | + + + + | 2022-09-05 00:00 | ETANERCEPT | [facility] | + + + + | 2022-09-24 00:00 | ETANERCEPT | [facility] | + + + + | 2022-09-24 00:00 | CYCLOBENZAPRINE HCL | [facility] | + + + + | 2022-08-22 00:00 | CYCLOBENZAPRINE HCL | [facility] | + + + + | 2022-09-05 00:00 | CYCLOBENZAPRINE HCL | [facility] | + + + + | 2022-08-22 00:00 | TRAMADOL HCL | [facility] | + + + + | 2022-09-05 00:00 | TRAMADOL HCL | [facility] | + + + + | 2022-09-24 00:00 | TRAMADOL HCL | [facility] | + + + + | 2018-01-07 00:00 | TRAMADOL HCL | [facility] | + + + + | 2018-01-07 00:00 | TRAMADOL HCL | [facility] | + + + + | 2022-08-22 00:00 | DICLOFENAC SOD | [facility] | + + + + | 2022-09-05 00:00 | DICLOFENAC SOD | [facility] | + + + + | 2022-09-24 00:00 | DICLOFENAC SOD | [facility] | + + + + | 2022-08-22 00:00 | AMITRIPTYLINE HCL | [facility] | + + + + | 2022-09-05 00:00 | AMITRIPTYLINE HCL | [facility] | + + + + | 2022-09-24 00:00 | AMITRIPTYLINE HCL | [facility] | + + + + | 2022-09-24 00:00 | ALBUTEROL SULFATE | [facility] | + + + + | 2022-08-22 00:00 | METFORMIN HCL | [facility] | + + + + | 2022-09-05 00:00 | METFORMIN HCL | [facility] | + + + + | 2022-09-24 00:00 | METFORMIN HCL | [facility] | + + + + | 2022-08-22 00:00 | Levothyroxine Sodium | [facility] | + + + + | 2022-09-05 00:00 | Levothyroxine Sodium | [facility] | + + + + | 2022-09-24 00:00 | Levothyroxine Sodium | [facility] | + + + + | 2022-09-05 00:00 | LEVOTHYROXINE SODIUM | [facility] | + + + + | 2022-08-22 00:00 | Insulin Aspart Prot/Insuln | [facility] | | | Asp | | + + + + | 2022-09-05 00:00 | Insulin Aspart Prot/Insuln | [facility] | | | Asp | | + + + + | 2022-09-24 00:00 | Insulin Aspart Prot/Insuln | [facility] | | | Asp | | + + + + | 2022-08-22 00:00 | buPROPion HCL | [facility] | + + + + | 2022-09-05 00:00 | buPROPion HCL | [facility] | + + + + | 2022-09-24 00:00 | buPROPion HCL | [facility] | + + + + Problems + + + + | date | description | facility | + + + + | 2021-03-19 00:00 | Infection due to severe | [facility] | | | acute respiratory syndrome | | | | coronavirus 2 (SARS-CoV-2) | | + + + + | 2021-03-19 00:00 | Infection due to severe | [facility] | | | acute respiratory syndrome | | | | coronavirus 2 (SARS-CoV-2) | | + + + + | 2021-12-02 09:30 | ENCNTR SCREEN MAMMOGRAM | [facility] | | | FOR MALIGNANT NE | | + + + + | 2022-04-19 11:09 | UNSPECIFIED OVARIAN CYST, | [facility] | | | LEFT SIDE | | + + + + | 2022-04-19 11:09 | ENCNTR SCREEN MAMMOGRAM | [facility] | | | FOR MALIGNANT NEOPLASM OF | | | | BREAST | | + + + + | 2022-08-22 00:00 | Thrush | [facility] | + + + + | 2022-08-22 00:00 | Thrush | [facility] | + + + + | 2022-08-22 20:19 | CANDIDAL STOMATITIS | [facility] | + + + + | 2022-08-22 20:19 | TYPE 2 DIABETES MELLITUS | [facility] | | | WITHOUT COMPLICATIONS | | + + + + | 2022-08-22 20:19 | NICOTINE DEPENDENCE, | [facility] | | | UNSPECIFIED, UNCOMPLICATED | | + + + + | 2022-08-22 20:19 | SHELTER (CURRENT) USE OF | [facility] | | | INSULIN | | + + + + | 2022-08-22 20:19 | OTHER MOSAIC LAYER (CURRENT) | [facility] | | | DRUG THERAPY | | + + + + | 2022-08-22 20:19 | ALLERGY STATUS TO OTH | [facility] | | | DRUG/MEDS/BIOL SUBST STATUS | | | | | | + + + + | 2022-09-05 00:00 | Mucositis | [facility] | + + + + | 2022-09-05 00:00 | Mucositis | [facility] | + + + + | 2022-09-05 00:00 | Erythema multiforme | [facility] | + + + + | 2022-09-05 00:00 | Erythema multiforme | [facility] | + + + + | 2022-09-05 09:02 | TYPE 2 DIABETES MELLITUS | [facility] | | | WITHOUT COMPLICATIONS | | + + + + | 2022-09-05 09:02 | NICOTINE DEPENDENCE, | [facility] | | | UNSPECIFIED, UNCOMPLICATED | | + + + + | 2022-09-05 09:02 | ORAL MUCOSITIS | [facility] | | | (ULCERATIVE), UNSPECIFIED | | + + + + | 2022-09-05 09:02 | ERYTHEMA MULTIFORME, | [facility] | | | UNSPECIFIED | | + + + + | 2022-09-05 09:02 | OTHER MOSAIC LAYER (CURRENT) | [facility] | | | DRUG THERAPY | | + + + + | 2022-09-05 09:02 | ALLERGY STATUS TO OTH | [facility] | | | DRUG/MEDS/BIOL SUBST STATUS | | | | | | + + + + | 2022-09-20 00:00 | Sepsis | [facility] | + + + + | 2022-09-20 00:00 | Pyelonephritis | [facility] | + + + + | 2022-09-20 22:54 | GRAM-NEGATIVE SEPSIS, | [facility] | | | UNSPECIFIED | | + + + + | 2022-09-20 22:54 | SEPSIS DUE TO ESCHERICHIA | [facility] | | | COLI [E. COLI] | | + + + + | 2022-09-20 22:54 | UNSP ESCHERICHIA COLI | [facility] | | | THE CAUSE OF DISEASES CLA | | + + + + | 2022-09-20 22:54 | ANEMIA, UNSPECIFIED | [facility] | + + + + | 2022-09-20 22:54 | SECONDARY POLYCYTHEMIA | [facility] | + + + + | 2022-09-20 22:54 | HYPOTHYROIDISM, | [facility] | | | UNSPECIFIED | | + + + + | 2022-09-20 22:54 | TYPE 2 DIABETES MELLITUS | [facility] | | | WITHOUT COMPLICATIONS | | + + + + | 2022-09-20 22:54 | ELIZABET'S SYNDROME, | [facility] | | | UNSPECIFIED | | + + + + | 2022-09-20 22:54 | OBESITY, UNSPECIFIED | [facility] | + + + + | 2022-09-20 22:54 | NICOTINE DEPENDENCE, | [facility] | | | CIGARETTES, UNCOMPLICATED | | + + + + | 2022-09-20 22:54 | HYPOTENSION, UNSPECIFIED | [facility] | + + + + | 2022-09-20 22:54 | CHRONIC OBSTRUCTIVE | [facility] | | | PULMONARY DISEASE, | | | | UNSPECIFIED | | + + + + | 2022-09-20 22:54 | OTHER FORMS OF STOMATITIS | [facility] | + + + + | 2022-09-20 22:54 | GASTRO-ESOPHAGEAL REFLUX | [facility] | | | DISEASE WITHOUT ESOPHAGIT | | + + + + | 2022-09-20 22:54 | DIAPHRAGMATIC HERNIA | [facility] | | | WITHOUT OBSTRUCTION OR | | | | GANGRE | | + + + + | 2022-09-20 22:54 | CONSTIPATION, UNSPECIFIED | [facility] | + + + + | 2022-09-20 22:54 | UNSPECIFIED HEMORRHOIDS | [facility] | + + + + | 2022-09-20 22:54 | ARTHROPATHIC PSORIASIS, | [facility] | | | UNSPECIFIED | | + + + + | 2022-09-20 22:54 | ERYTHEMA MULTIFORME, | [facility] | | | UNSPECIFIED | | + + + + | 2022-09-20 22:54 | SYSTEMIC INVOLVEMENT OF | [facility] | | | CONNECTIVE TISSUE, UNSPECI | | + + + + | 2022-09-20 22:54 | FIBROMYALGIA | [facility] | + + + + | 2022-09-20 22:54 | Tubulo-interstitial | [facility] | | | nephritis, not specified as | | | | acute or chronic | | + + + + | 2022-09-20 22:54 | FEVER, UNSPECIFIED | [facility] | + + + + | 2022-09-20 22:54 | BODY MASS INDEX [BMI] | [facility] | | | 40.0-44.9, ADULT | | + + + + | 2022-09-20 22:54 | SHELTER (CURRENT) USE OF | [facility] | | | ANTITHROMBOTICS/ANTIPLA | | + + + + | 2022-09-20 22:54 | MOSAIC LAYER (CURRENT) USE OF | [facility] | | | ANTIBIOTICS | | + + + + | 2022-09-20 22:54 | MOSAIC LAYER (CURRENT) USE OF | [facility] | | | INSULIN | | + + + + | 2022-09-20 22:54 | SHELTER (CURRENT) USE OF | [facility] | | | SYSTEMIC STEROIDS | | + + + + | 2022-09-20 22:54 | MOSAIC LAYER (CURRENT) USE OF | [facility] | | | AROMATASE INHIBITORS | | + + + + | 2022-09-20 22:54 | HORMONE REPLACEMENT | [facility] | | | THERAPY | | + + + + | 2022-09-20 22:54 | MOSAIC LAYER (CURRENT) USE OF | [facility] | | | OPIATE ANALGESIC | | + + + + | 2022-09-20 22:54 | OTHER MOSAIC LAYER (CURRENT) | [facility] | | | DRUG THERAPY | | + + + + | 2022-09-20 22:54 | ALLERGY STATUS TO OTH | [facility] | | | DRUG/MEDS/BIOL SUBST STATUS | | | | | | + + + + | 2022-09-20 22:54 | ACQUIRED ABSENCE OF OTHER | [facility] | | | SPECIFIED PARTS OF DIGES | | + + + + | 2022-09-20 22:54 | ACQUIRED ABSENCE OF BOTH | [facility] | | | CERVIX AND UTERUS | | + + + + | 2022-09-20 22:54 | TUBAL LIGATION STATUS | [facility] | + + + + | 2022-09-20 22:54 | OTHER SPECIFIED | [facility] | | | POSTPROCEDURAL STATES | | + + + + Procedures No information. Results/Labs +--------+--------+ +---------+--------+---------+ | test | date | facility | value | unit | notes | +--------+--------+ +---------+--------+---------+ + + | Result panel 1 | + + + + + + + + + | | 2022-08-22 | [facility] | NEGATIVE | (missing) | (missing) | | (unavailable | [facility]07 [facility] | | | + + + + + + + + + | Result panel 2 | + + + + + + + + + | | 2022-08-22 | [facility] | NEGATIVE | (missing) | (missing) | | (unavailable | [facility]55:07 [facility] | | | | + + + + + + + + + | Result panel 3 | + + + + + + + + + | | 2022-08-22 | [facility] | NEGATIVE | (missing) | (missing) | | (unavailable | [facility]07 [facility] | | | | + + + + + + + + + | Result panel 4 | + + + + + + + + + | | 2022-08-22 | [facility] | NEGATIVE | (missing) | (missing) | | (unavailable | [facility]55[facility]07 [facility] | | | | + + + + + + + + + | Result panel 5 | + + + + + + + + + | | 2022-08-22 | [facility] | NEGATIVE | (missing) | (missing) | | (unavailable | [facility] | | | | + + + + + + + + + | Result panel 6 | + + + + + + + + + | | 2022-08-22 | [facility] | NEGATIVE | (missing) | (missing) | | (unavailable | [facility] | | | | + + + + + + + + + | Result panel 7 | + + + + + + + + + | | 2022-08-22 | [facility] | NEGATIVE | (missing) | (missing) | | (unavailable | [facility]07 [facility] | | | | + + + + + + + + + | Result panel 8 | + + + + + + + + + | | 2022-08-22 | [facility] | NEGATIVE | (missing) | (missing) | | (unavailable | [facility]55:07 [facility] | | | | + + + + + + + + + | Result panel 9 | + + + + + +-------+ + + | | 2022-08-22 | [facility] | 4.9 | (missing) | (missing) | | (unavailable | [facility]00:07 [facility] | | | | + + + +-------+ + + + + | Result panel 10 | + + + + + + + + + | | 2022-08-22 | [facility] | SEE | (missing) | (missing) | | (unavailable | [facility]:00:07 [facility] COM[facility] | [facility] | | | | + + + + + + + + + | Result panel 11 | + + + + + +--------+ + + | | 2022-08-22 | [facility] | 3.42 | (missing) | (missing) | | (unavailable | [facility]00:07 [facility] | | | | + + + +--------+ + + + + | Result panel 12 | + + + + + +--------+ + + | | 2022-08-22 | [facility] | 10.0 | (missing) | (missing) | | (unavailable | [facility]00:07 [facility] | | | | + + + +--------+ + + + + | Result panel 13 | + + + + + +--------+ + + | | 2022-08-22 | [facility] | 31.2 | (missing) | (missing) | | (unavailable | [facility]00:07 [facility] | | | | + + + +--------+ + + + + | Result panel 14 | + + + + + +--------+ + + | | 2022-08-22 | [facility] | 91.3 | (missing) | (missing) | | (unavailable | [facility]00:07 [facility] | | | | + + + +--------+ + + + + | Result panel 15 | + + + + + +--------+ + + | | 2022-08-22 | [facility] | 29.3 | (missing) | (missing) | | (unavailable | [facility]:00:07 [facility] | | | | + + + +--------+ + + + + | Result panel 16 | + + + + + +--------+ + + | | 2022-08-22 | [facility] | 32.1 | (missing) | (missing) | | (unavailable | ::07 [facility] | | | | + + + +--------+ + + + + | Result panel 17 | + + + + + +--------+ + + | | 2022-08-22 | [facility] | 36.5 | (missing) | (missing) | | (unavailable | 21::07 [facility] | | | | + + + +--------+ + + + + | Result panel 18 | + + + + + +-------+ + + | | 2022-08-22 | [facility] | 204 | (missing) | (missing) | | (unavailable | [facility]:00:07 [facility] | | | | + + + +-------+ + + + + | Result panel 19 | + + + + + +--------+ + + | | 2022-08-22 | [facility] | 39.8 | (missing) | (missing) | | (unavailable | [facility]:00:07 [facility] | | | | + + + +--------+ + + + + | Result panel 20 | + + + + + +--------+ + + | | 2022-08-22 | [facility] | 49.9 | (missing) | (missing) | | (unavailable | :07 [facility] | | | | + + + +--------+ + + + + | Result panel 21 | + + + + + +-------+ + + | | 2022-08-22 | [facility] | 1.3 | (missing) | (missing) | | (unavailable | ::07 [facility] | | | | + + + +-------+ + + + + | Result panel 22 | + + + + + +-------+ + + | | 2022-08-22 | [facility] | 8.5 | (missing) | (missing) | | (unavailable | [facility]:00:07 [facility] | | | | + + + +-------+ + + + + | Result panel 23 | + + + + + +-------+ + + | | 2022-08-22 | [facility] | 0.5 | (missing) | (missing) | | (unavailable | [facility]:00:07 [facility] | | | | + + + +-------+ + + + + | Result panel 24 | + + + + + +------+ + + | | 2022-08-22 | [facility] | 50 | (missing) | (missing) | | (unavailable | 21:00:07 [facility] | | | | + + + +------+ + + + + | Result panel 25 | + + + + + +-------+---------+ + | | 2022-08-22 | [facility] | 219 | mg/dL | (missing) | | (unavailable | 21:00:07 [facility] | | | | + + + +-------+---------+ + + + | Result panel 26 | + + + + + +------+---------+ + | | 2022-08-22 | [facility] | 14 | mg/dL | (missing) | | (unavailable | 21:00:07 [facility] | | | | + + + +------+---------+ + + + | Result panel 27 | + + + + + +--------+---------+ + | | 2022-08-22 | [facility] | 0.99 | mg/dL | (missing) | | (unavailable | [facility]:00:07 [facility] | | | | + + + +--------+---------+ + + + | Result panel 28 | + + + + + +------+ + + | | 2022-08-22 | [facility] | 70 | (missing) | (missing) | | (unavailable | 21:00:07 [facility] | | | | + + + +------+ + + + + | Result panel 29 | + + + + + +---------+ + + | | 2022-08-22 | [facility] | 14.14 | (missing) | (missing) | | (unavailable | 21:00:07 [facility] | | | | + + + +---------+ + + + + | Result panel 30 | + + + + + +-------+ + + | | 2022-08-22 | [facility] | 138 | (missing) | (missing) | | (unavailable | 21:00:07 [facility] | | | | + + + +-------+ + + + + | Result panel 31 | + + + + + +-------+ + + | | 2022-08-22 | [facility] | 4.0 | (missing) | (missing) | | (unavailable | [facility]:00:07 [facility] | | | | + + + +-------+ + + + + | Result panel 32 | + + + + + +-------+ + + | | 2022-08-22 | [facility] | 102 | (missing) | (missing) | | (unavailable | 21:00:07 [facility] | | | | + + + +-------+ + + + + | Result panel 33 | + + + + + +------+ + + | | 2022-08-22 | [facility] | 29 | (missing) | (missing) | | (unavailable | 21:00:07 [facility] | | | | + + + +------+ + + + + | Result panel 34 | + + + + + +--------+ + + | | 2022-08-22 | [facility] | 11.0 | (missing) | (missing) | | (unavailable | 21:00:07 [facility] | | | | + + + +--------+ + + + + | Result panel 35 | + + + + + +-------+---------+ + | | 2022-08-22 | [facility] | 8.5 | mg/dL | (missing) | | (unavailable | 21:00:07 [facility] | | | | + + + +-------+---------+ + + + | Result panel 36 | + + + + + +-------+ + + | | 2022-08-22 | [facility] | 6.6 | (missing) | (missing) | | (unavailable | 21::07 | [facility] | | | | + + + +-------+ + + + + | Result panel 37 | + + + + + +-------+ + + | | 2022-08-22 | [facility] | 3.1 | (missing) | (missing) | | (unavailable | 21:00:07 [facility] | | | | + + + +-------+ + + + + | Result panel 38 | + + + + + +-------+ + + | | 2022-08-22 | [facility] | 3.5 | (missing) | (missing) | | (unavailable | 21:00:07 [facility] | | | | + + + +-------+ + + + + | Result panel 39 | + + + + + +--------+ + + | | 2022-08-22 | [facility] | 0.89 | (missing) | (missing) | | (unavailable | 21:00:07 [facility] | | | | + + + +--------+ + + + + | Result panel 40 | + + + + + +-------+ + + | | 2022-08-22 | [facility] | 0.9 | (missing) | (missing) | | (unavailable | 21::07 | [facility] | | | | + + + +-------+ + + + + | Result panel 41 | + + + + + +------+ + + | | 2022-08-22 | [facility] | 45 | (missing) | (missing) | | (unavailable | 21:00:07 | [facility] | | | | ) | [facility] | | | | + + + +------+ + + + + | Result panel 42 | + + + + + +------+ + + | | 2022-08-22 | [facility] | 84 | (missing) | (missing) | | (unavailable | :: | [facility] | | | | + + + +------+ + + + + | Result panel 43 | + + + + + +------+ + + | | 2022-08-22 | [facility] | 90 | (missing) | (missing) | | (unavailable | 21::07 | [facility] | | | | + + + +------+ + + + + | Result panel 44 | + + + + + +------+ + + | | 2022-08-22 | [facility] | 50 | (missing) | (missing) | | (unavailable | 21::07 | [facility] | | | | + + + +------+ + + + + | Result panel 45 | + + + + + +--------+ + + | | 2022-09-05 | [facility] | 12.5 | (missing) | (missing) | | (unavailable | 09:37:07 [facility] | | | | + + + +--------+ + + + + | Result panel 46 | + + + + + +-------+---------+ + | | 2022-09-05 | [facility] | 9.2 | mg/dL | (missing) | | (unavailable | 09:37:07 [facility] | | | | + + + +-------+---------+ + + + | Result panel 47 | + + + + + +-------+ + + | | 2022-09-05 | [facility] | 6.5 | (missing) | (missing) | | (unavailable | 09:37:07 [facility] | | | | + + + +-------+ + + + + | Result panel 48 | + + + + + +-------+ + + | | 2022-09-05 | [facility] | 3.0 | (missing) | (missing) | | (unavailable | 09:37:07 [facility] | | | | + + + +-------+ + + + + | Result panel 49 | + + + + + +-------+ + + | | 2022-09-05 | [facility] | 3.5 | (missing) | (missing) | | (unavailable | 09:37:07 [facility] | | | | + + + +-------+ + + + + | Result panel 50 | + + + + + +--------+ + + | | 2022-09-05 | [facility] | 0.86 | (missing) | (missing) | | (unavailable | 09:37:07 [facility] | | | | + + + +--------+ + + + + | Result panel 51 | + + + + + +-------+ + + | | 2022-09-05 | [facility] | 1.0 | (missing) | (missing) | | (unavailable | 09:37:07 [facility] | | | | + + + +-------+ + + + + | Result panel 52 | + + + + + +------+ + + | | 2022-09-05 | [facility] | 66 | (missing) | (missing) | | (unavailable | 09:37:07 [facility] | | | | + + + +------+ + + + + | Result panel 53 | + + + + + +------+ + + | | 2022-09-05 | [facility] | 69 | (missing) | (missing) | | (unavailable | 09:37:07 [facility] | | | | + + + +------+ + + + + | Result panel 54 | + + + + + +------+ + + | | 2022-09-05 | [facility] | 90 | (missing) | (missing) | | (unavailable | 09:37:07 [facility] | | | | + + + +------+ + + + + | Result panel 55 | + + + + + +-------+ + + | | 2022-09-05 | [facility] | 2.9 | (missing) | (missing) | | (unavailable | 09:37:07 [facility] | | | | + + + +-------+ + + + + | Result panel 56 | + + + + + + + + + | | 2022-09-05 | [facility] | SEE COMMENT | (missing) | (missing) | | (unavailable | 09:37:07 [facility] | | | | + + + + + + + + + | Result panel 57 | + + + + + +--------+ + + | | 2022-09-05 | [facility] | 3.12 | (missing) | (missing) | | (unavailable | 09:37:07 [facility] | | | | + + + +--------+ + + + + | Result panel 58 | + + + + + +-------+ + + | | 2022-09-05 | [facility] | 9.6 | (missing) | (missing) | | (unavailable | 09:37:07 [facility] | | | | + + + +-------+ + + + + | Result panel 59 | + + + + + +--------+ + + | | 2022-09-05 | [facility] | 28.6 | (missing) | (missing) | | (unavailable | 09:37:07 [facility] | | | | + + + +--------+ + + + + | Result panel 60 | + + + + + +--------+ + + | | 2022-09-05 | [facility] | 91.8 | (missing) | (missing) | | (unavailable | 09:37:07 [facility] | | | | + + + +--------+ + + + + | Result panel 61 | + + + + + +--------+ + + | | 2022-09-05 | [facility] | 30.7 | (missing) | (missing) | | (unavailable | 09:37:07 [facility] | | | | + + + +--------+ + + + + | Result panel 62 | + + + + + +--------+ + + | | 2022-09-05 | [facility] | 33.5 | (missing) | (missing) | | (unavailable | 09:37:07 [facility] | | | | + + + +--------+ + + + + | Result panel 63 | + + + + + +--------+ + + | | 2022-09-05 | [facility] | 38.2 | (missing) | (missing) | | (unavailable | 09:37:07 [facility] | | | | + + + +--------+ + + + + | Result panel 64 | + + + + + +-------+ + + | | 2022-09-05 | [facility] | 200 | (missing) | (missing) | | (unavailable | 09:37:07 [facility] | | | | + + + +-------+ + + + + | Result panel 65 | + + + + + +--------+ + + | | 2022-09-05 | [facility] | 43.3 | (missing) | (missing) | | (unavailable | 09:37:07 [facility] | | | | + + + +--------+ + + + + | Result panel 66 | + + + + + +--------+ + + | | 2022-09-05 | [facility] | 51.0 | (missing) | (missing) | | (unavailable | 09:37:07 [facility] | | | | + + + +--------+ + + + + | Result panel 67 | + + + + + +-------+ + + | | 2022-09-05 | [facility] | 4.6 | (missing) | (missing) | | (unavailable | 09:37:07 [facility] | | | | + + + +-------+ + + + + | Result panel 68 | + + + + + +-------+ + + | | 2022-09-05 | [facility] | 0.6 | (missing) | (missing) | | (unavailable | 09:37:07 [facility] | | | | + + + +-------+ + + + + | Result panel 69 | + + + + + +-------+ + + | | 2022-09-05 | [facility] | 0.5 | (missing) | (missing) | | (unavailable | 09:37:07 [facility] | | | | + + + +-------+ + + + + | Result panel 70 | + + + + + +-------+---------+ + | | 2022-09-05 | [facility] | 141 | mg/dL | (missing) | | (unavailable | 09:37:07 [facility] | | | | + + + +-------+---------+ + + + | Result panel 71 | + + + + + +------+---------+ + | | 2022-09-05 | [facility] | 26 | mg/dL | (missing) | | (unavailable | :37:07 | [facility] | | | | + + + +------+---------+ + + + | Result panel 72 | + + + + + +--------+---------+ + | | 2022-09-05 | [facility] | 1.11 | mg/dL | (missing) | | (unavailable | :37:07 | [facility] | | | | + + + +--------+---------+ + + + | Result panel 73 | + + + + + +------+ + + | | 2022-09-05 | [facility] | 61 | (missing) | (missing) | | (unavailable | 09:37:07 [facility] | | | | + + + +------+ + + + + | Result panel 74 | + + + + + +---------+ + + | | 2022-09-05 | [facility] | 23.42 | (missing) | (missing) | | (unavailable | 09:37:07 [facility] | | | | + + + +---------+ + + + + | Result panel 75 | + + + + + +-------+ + + | | 2022-09-05 | [facility] | 139 | (missing) | (missing) | | (unavailable | 09:37:07 [facility] | | | | + + + +-------+ + + + + | Result panel 76 | + + + + + +-------+ + + | | 2022-09-05 | [facility] | 3.5 | (missing) | (missing) | | (unavailable | 09:37:07 [facility] | | | | + + + +-------+ + + + + | Result panel 77 | + + + + + +-------+ + + | | 2022-09-05 | [facility] | 101 | (missing) | (missing) | | (unavailable | 09:37:07 [facility] | | | | + + + +-------+ + + + + | Result panel 78 | + + + + + +------+ + + | | 2022-09-05 | [facility] | 29 | (missing) | (missing) | | (unavailable | 09:37:07 [facility] | | | | + + + +------+ + + + + | Result panel 79 | + + + + + + + + + | | 2022-09-20 | [facility] | NEGATIVE | (missing) | (missing) | | (unavailable | 19:43:07 | [facility] | | | | + + + + + + + + + | Result panel 80 | + + + + + + + + + | | 2022-09-20 | [facility] | NEGATIVE | (missing) | (missing) | | (unavailable | 19:43:07 [facility] | | | | + + + + + + + + + | Result panel 81 | + + + + + + + + + | | 2022-09-20 | [facility] | NEGATIVE | (missing) | (missing) | | (unavailable | 19:43:07 [facility] | | | | + + + + + + + + + | Result panel 82 | + + + + + + + + + | | 2022-09-20 | [facility] | NEGATIVE | (missing) | (missing) | | (unavailable | 19:43:07 [facility] | | | | + + + + + + + + + | Result panel 83 | + + + + + + + + + | | 2022-09-20 | [facility] | ESCHERICHIA | (missing) | (missing) | | (unavailable | 20:06:07 | [facility] | | | | + + + + + + + + + | Result panel 84 | + + + + + + + + + | | 2022-09-20 | [facility] | YELLOW | (missing) | (missing) | | (unavailable | 20:25:07 | [facility] | | | | + + + + + + + + + | Result panel 85 | + + + + + +---------+ + + | | 2022-09-20 | [facility] | CLEAR | (missing) | (missing) | | (unavailable | 20:25:07 | [facility] | | | | + + + +---------+ + + + + | Result panel 86 | + + + + + + + + + | | 2022-09-20 | [facility] | NEGATIVE | (missing) | (missing) | | (unavailable | 20:25:07 | [facility] | | | | + + + + + + + + + | Result panel 87 | + + + + + + + + + | | 2022-09-20 | [facility] | NEGATIVE | (missing) | (missing) | | (unavailable | 20:25:07 | [facility] | | | | + + + + + + + + + | Result panel 88 | + + + + + +---------+ + + | | 2022-09-20 | [facility] | TRACE | (missing) | (missing) | | (unavailable | 20:25:07 | [facility] | | | | + + + +---------+ + + + + | Result panel 89 | + + + + + +---------+ + + | | 2022-09-20 | [facility] | 1.015 | (missing) | (missing) | | (unavailable | 20:25:07 | [facility] | | | | + + + +---------+ + + + + | Result panel 90 | + + + + + + + + + | | 2022-09-20 | [facility] | TRACE-I | (missing) | (missing) | | (unavailable | 20:25:07 | [facility] | | | | + + + + + + + + + | Result panel 91 | + + + + + +-------+ + + | | 2022-09-20 | [facility] | 6.5 | (missing) | (missing) | | (unavailable | 20:25:07 | [facility] | | | | + + + +-------+ + + + + | Result panel 92 | + + + + + +------+ + + | | 2022-09-20 | [facility] | 30 | (missing) | (missing) | | (unavailable | 20::07 | [facility] | | | | + + + +------+ + + + + | Result panel 93 | + + + + + + + + + | | 2022-09-20 | [facility] | NORMAL | (missing) | (missing) | | (unavailable | 20:25:07 | [facility] | | | | + + + + + + + + + | Result panel 94 | + + + + + + + + + | | 2022-09-20 | [facility] | NEGATIVE | (missing) | (missing) | | (unavailable | 20:25:07 | [facility] | | | | + + + + + + + + + | Result panel 95 | + + + + + +---------+ + + | | 2022-09-20 | [facility] | TRACE | (missing) | (missing) | | (unavailable | 20:25:07 [facility] | | | | + + + +---------+ + + + + | Result panel 96 | + + + + + +-------+ + + | | 2022-09-20 | [facility] | 2-3 | (missing) | (missing) | | (unavailable | 20:25:07 | [facility] | | | | + + + +-------+ + + + + | Result panel 97 | + + + + + +-------+ + + | | 2022-09-20 | [facility] | >50 | (missing) | (missing) | | (unavailable | 20:25:07 | [facility] | | | | + + + +-------+ + + + + | Result panel 98 | + + + + + + + + + | | 2022-09-20 | [facility] | SQUAMOUS 1+ | (missing) | (missing) | | (unavailable | 20:25:07 | [facility] | | | | + + + + + + + + + | Result panel 99 | + + + + + + + + + | | 2022-09-20 | [facility] | NONE SEEN | (missing) | (missing) | | (unavailable | 20:25:07 | [facility] | | | | + + + + + + + + + | Result panel 100 | + + + + + +------+ + + | | 2022-09-20 | [facility] | 1+ | (missing) | (missing) | | (unavailable | 20:25:07 [facility] | | | | + + + +------+ + + + + | Result panel 101 | + + + + + + + + + | | 2022-09-20 | [facility] | NONE SEEN | (missing) | (missing) | | (unavailable | 20:25:07 | [facility] | | | | + + + + + + + + + | Result panel 102 | + + + + + +-------+ + + | | 2022-09-20 | [facility] | Yes | (missing) | (missing) | | (unavailable | 20:25:07 | [facility] | | | | + + + +-------+ + + + + | Result panel 103 | + + + + + + + + + | | 2022-09-20 | [facility] | GRAM | (missing) | (missing) | | (unavailable | 20:25:07 | [facility] NEGATIVE | | | [facility] | | [facility] | BACILLI | | | + + + + + + + + + | Result panel 104 | + + + + + + + + + | | 2022-09-21 | [facility] | PRESENT | (missing) | (missing) | | (unavailable | 05:29:07 | [facility] | | | | + + + + + + + + + | Result panel 105 | + + + + + +-------+ + + | | 2022-09-21 | [facility] | 6.2 | (missing) | (missing) | | (unavailable | 05:29:07 [facility] | | | | + + + +-------+ + + + + | Result panel 106 | + + + + + +-------+ + + | | 2022-09-21 | [facility] | 2.2 | (missing) | (missing) | | (unavailable | 05:29:07 [facility] | | | | + + + +-------+ + + + + | Result panel 107 | + + + + + +-------+ + + | | 2022-09-21 | [facility] | 4.0 | (missing) | (missing) | | (unavailable | 05:29:07 [facility] | | | | + + + +-------+ + + + + | Result panel 108 | + + + + + +--------+ + + | | 2022-09-21 | [facility] | 0.55 | (missing) | (missing) | | (unavailable | 05:29:07 [facility] | | | | + + + +--------+ + + + + | Result panel 109 | + + + + + +-------+ + + | | 2022-09-21 | [facility] | 0.6 | (missing) | (missing) | | (unavailable | 05:29:07 [facility] | | | | + + + +-------+ + + + + | Result panel 110 | + + + + + +------+ + + | | 2022-09-21 | [facility] | 22 | (missing) | (missing) | | (unavailable | 05:29:07 [facility] | | | | + + + +------+ + + + + | Result panel 111 | + + + + + +------+ + + | | 2022-09-21 | [facility] | 31 | (missing) | (missing) | | (unavailable | 05:29:07 [facility] | | | | + + + +------+ + + + + | Result panel 112 | + + + + + +-------+ + + | | 2022-09-21 | [facility] | 155 | (missing) | (missing) | | (unavailable | 05:29:07 [facility] | | | | + + + +-------+ + + + + | Result panel 113 | + + + + + +-----+ + + | | 2022-09-21 | [facility] | 1 | (missing) | (missing) | | (unavailable | 15:19:07 | [facility] | | | | + + + +-----+ + + + + | Result panel 114 | + + + + + + + + + | | 2022-09-21 | [facility] | PRESENT | (missing) | (missing) | | (unavailable | 15:19:07 [facility] | | | | + + + + + + + + + | Result panel 115 | + + + + + +-------+ + + | | 2022-09-21 | [facility] | 1.7 | (missing) | (missing) | | (unavailable | 15:19:07 [facility] | | | | + + + +-------+ + + + + | Result panel 116 | + + + + + +------+ + + | | 2022-09-22 | [facility] | 60 | (missing) | (missing) | | (unavailable | 05:09:07 [facility] | | | | + + + +------+ + + + + | Result panel 117 | + + + + + +------+ + + | | 2022-09-22 | [facility] | 27 | (missing) | (missing) | | (unavailable | 05:09:07 [facility] | | | | + + + +------+ + + + + | Result panel 118 | + + + + + +-----+ + + | | 2022-09-22 | [facility] | 4 | (missing) | (missing) | | (unavailable | 05::07 | [facility] | | | | + + + +-----+ + + + + | Result panel 119 | + + + + + +-----+ + + | | 2022-09-22 | [facility] | 1 | (missing) | (missing) | | (unavailable | 05:09:07 [facility] | | | | + + + +-----+ + + + + | Result panel 120 | + + + + + +-----+ + + | | 2022-09-22 | [facility] | 8 | (missing) | (missing) | | (unavailable | 05:09:07 [facility] | | | | + + + +-----+ + + + + | Result panel 121 | + + + + + + + + + | | 2022-09-22 | [facility] | MARKED | (missing) | (missing) | | (unavailable | 05:09:07 [facility] | | | | + + + + + + + + + | Result panel 122 | + + + + + +--------+ + + | | 2022-09-24 | [facility] | 22.1 | (missing) | (missing) | | (unavailable | 05:25:07 [facility] | | | | + + + +--------+ + + + + | Result panel 123 | + + + + + +-------+ + + | | 2022-09-24 | [facility] | 229 | (missing) | (missing) | | (unavailable | 05:25:07 [facility] | | | | + + + +-------+ + + + + | Result panel 124 | + + + + + +--------+ + + | | 2022-09-24 | [facility] | 64.0 | (missing) | (missing) | | (unavailable | 05:25:07 [facility] | | | | + + + +--------+ + + + + | Result panel 125 | + + + + + +--------+ + + | | 2022-09-24 | [facility] | 24.4 | (missing) | (missing) | | (unavailable | 05:25:07 [facility] | | | | + + + +--------+ + + + + | Result panel 126 | + + + + + +-------+ + + | | 2022-09-24 | [facility] | 8.3 | (missing) | (missing) | | (unavailable | 05:25:07 [facility] | | | | + + + +-------+ + + + + | Result panel 127 | + + + + + +-------+ + + | | 2022-09-24 | [facility] | 2.7 | (missing) | (missing) | | (unavailable | 05:25:07 [facility] | | | | + + + +-------+ + + + + | Result panel 128 | + + + + + +-------+ + + | | 2022-09-24 | [facility] | 0.6 | (missing) | (missing) | | (unavailable | 05:25:07 [facility] | | | | + + + +-------+ + + + + | Result panel 129 | + + + + + +-------+---------+ + | | 2022-09-24 | [facility] | 192 | mg/dL | (missing) | | (unavailable | 05:25:07 [facility] | | | | + + + +-------+---------+ + + + | Result panel 130 | + + + + + +------+---------+ + | | 2022-09-24 | [facility] | 15 | mg/dL | (missing) | | (unavailable | 05:25:07 [facility] | | | | + + + +------+---------+ + + + | Result panel 131 | + + + + + +--------+---------+ + | | 2022-09-24 | [facility] | 1.02 | mg/dL | (missing) | | (unavailable | 05:25:07 [facility] | | | | + + + +--------+---------+ + + + | Result panel 132 | + + + + + + + + + | | 2022-09-24 | [facility] | SEE COMMENT | (missing) | (missing) | | (unavailable | 05:25:07 [facility] | | | | + + + + + + + + + | Result panel 133 | + + + + + +------+ + + | | 2022-09-24 | [facility] | 67 | (missing) | (missing) | | (unavailable | 05:25:07 [facility] | | | | + + + +------+ + + + + | Result panel 134 | + + + + + +---------+ + + | | 2022-09-24 | [facility] | 14.70 | (missing) | (missing) | | (unavailable | 05:25:07 [facility] | | | | + + + +---------+ + + + + | Result panel 135 | + + + + + +-------+ + + | | 2022-09-24 | [facility] | 141 | (missing) | (missing) | | (unavailable | 05:25:07 [facility] | | | | + + + +-------+ + + + + | Result panel 136 | + + + + + +-------+ + + | | 2022-09-24 | [facility] | 3.9 | (missing) | (missing) | | (unavailable | 05:25:07 [facility] | | | | + + + +-------+ + + + + | Result panel 137 | + + + + + +-------+ + + | | 2022-09-24 | [facility] | 105 | (missing) | (missing) | | (unavailable | 05:25:07 [facility] | | | | + + + +-------+ + + + + | Result panel 138 | + + + + + +------+ + + | | 2022-09-24 | [facility] | 29 | (missing) | (missing) | | (unavailable | 05:25:07 [facility] | | | | + + + +------+ + + + + | Result panel 139 | + + + + + +--------+ + + | | 2022-09-24 | [facility] | 10.9 | (missing) | (missing) | | (unavailable | 05:25:07 [facility] | | | | + + + +--------+ + + + + | Result panel 140 | + + + + + +-------+---------+ + | | 2022-09-24 | [facility] | 8.8 | mg/dL | (missing) | | (unavailable | 05:25:07 [facility] | | | | + + + +-------+---------+ + + + | Result panel 141 | + + + + + +--------+ + + | | 2022-09-24 | [facility] | 2.88 | (missing) | (missing) | | (unavailable | 05:25:07 [facility] | | | | + + + +--------+ + + + + | Result panel 142 | + + + + + +-------+ + + | | 2022-09-24 | [facility] | 8.7 | (missing) | (missing) | | (unavailable | 05:25:07 [facility] | | | | + + + +-------+ + + + + | Result panel 143 | + + + + + +--------+ + + | | 2022-09-24 | [facility] | 27.3 | (missing) | (missing) | | (unavailable | 05:25:07 [facility] | | | | + + + +--------+ + + + + | Result panel 144 | + + + + + +--------+ + + | | 2022-09-24 | [facility] | 94.9 | (missing) | (missing) | | (unavailable | 05:25:07 [facility] | | | | + + + +--------+ + + + + | Result panel 145 | + + + + + +--------+ + + | | 2022-09-24 | [facility] | 30.2 | (missing) | (missing) | | (unavailable | 05:25:07 [facility] | | | | + + + +--------+ + + + + | Result panel 146 | + + + + + +--------+ + + | | 2022-09-24 | [facility] | 31.8 | (missing) | (missing) | | (unavailable | 05:25:07 [facility] | | | | + + + +--------+ + + + + | Result panel 147 | + + + + + +--------+ + + | | 2022-09-24 | [facility] | 33.6 | (missing) | (missing) | | (unavailable | 05:25:07 [facility] | | | | + + + +--------+ + + + + | Result panel 148 | + + + + + +-------+ + + | | 2022-09-24 | [facility] | 142 | (missing) | (missing) | | (unavailable | 07:39:07 [facility] | | | | + + + +-------+ + + Social History No information. Vital Signs + + + +---------+ | date | measurement | value | units | + + + +---------+ | 2022-08-22 00:00 | BMI | 44.9 | kg/m2 | + + + +---------+ | 2022-08-22 00:00 | BP_diastolic | 91 | mmHg | + + + +---------+ | 2022-08-22 00:00 | BP_systolic | 156 | mmHg | + + + +---------+ | 2022-08-22 00:00 | heart_rate | 96 | /min | + + + +---------+ | 2022-08-22 00:00 | height_metric | 160.02 | cm | + + + +---------+ | 2022-08-22 00:00 | height_standard | 63 | in | + + + +---------+ | 2022-08-22 00:00 | o2_saturation | 99 | % | + + + +---------+ | 2022-08-22 00:00 | respiration_rate | 18 | /min | + + + +---------+ | 2022-08-22 00:00 | temperature_metric | 36.67 | C | | | | | | + + + +---------+ | 2022-08-22 00:00 | | 98 | F | | | temperature_standar | | | | | d | | | + + + +---------+ | 2022-08-22 00:00 | weight_metric | 115 | kg | + + + +---------+ | 2022-08-22 00:00 | weight_standard | 253.53 | lb | + + + +---------+ | 2022-09-05 00:00 | BMI | 41.8 | kg/m2 | + + + +---------+ | 2022-09-05 00:00 | BP_diastolic | 64 | mmHg | + + + +---------+ | 2022-09-05 00:00 | BP_systolic | 102 | mmHg | + + + +---------+ | 2022-09-05 00:00 | heart_rate | 90 | /min | + + + +---------+ | 2022-09-05 00:00 | height_metric | 160.02 | cm | + + + +---------+ | 2022-09-05 00:00 | height_standard | 63 | in | + + + +---------+ | 2022-09-05 00:00 | o2_saturation | 98 | % | + + + +---------+ | 2022-09-05 00:00 | respiration_rate | 18 | /min | + + + +---------+ | 2022-09-05 00:00 | temperature_metric | 36.11 | C | | | | | | + + + +---------+ | 2022-09-05 00:00 | | 97 | F | | | temperature_standar | | | | | d | | | + + + +---------+ | 2022-09-05 00:00 | weight_metric | 107.05 | kg | + + + +---------+ | 2022-09-05 00:00 | weight_standard | 236 | lb | + + + +---------+ | 2022-09-20 00:00 | BMI | 44.1 | kg/m2 | + + + +---------+ | 2022-09-20 00:00 | height_metric | 160.02 | cm | + + + +---------+ | 2022-09-20 00:00 | height_standard | 63 | in | + + + +---------+ | 2022-09-20 00:00 | weight_metric | 113 | kg | + + + +---------+ | 2022-09-20 00:00 | weight_standard | 249.12 | lb | + + + +---------+ | 2022-09-24 00:00 | BP_diastolic | 77 | mmHg | + + + +---------+ | 2022-09-24 00:00 | BP_systolic | 113 | mmHg | + + + +---------+ | 2022-09-24 00:00 | heart_rate | 84 | /min | + + + +---------+ | 2022-09-24 00:00 | o2_saturation | 99 | % | + + + +---------+ | 2022-09-24 00:00 | respiration_rate | 17 | /min | + + + +---------+ | 2022-09-24 00:00 | temperature_metric | 36.72 | C | | | | | | + + + +---------+ | 2022-09-24 00:00 | | 98.1 | F | | | temperature_standar | | | | | d | | | + + + +---------+"
--- OUTSIDE RECORDS SUMMARY | ~2022-10-18 | XMS | Continuity of Care Document ---
Demographics + + + | Address | [address] | | | [place] [address] | + + + | Preferred Language | Unknown | + + + | Marital Status | Never | + + + | Christian Affiliation | Unknown | + + + | Race | White | + + + | Ethnic Group | Not or | + + + Author + + + | Author | [place] | + + + | Organization | [place] | + + + | Address | [address] [facility] | | | [place] [address] | + + + | Phone | | + + + Care Team Providers + + + + | Care Director [facility] Name | Role | Phone | + [...] + | (no date) | Risperidone | [facility] | (no reaction) | (no severity) | | | | [facility] | | | | | | Hospital | | | + + + + + + Encounters No information. Functional Status No information. Immunizations No information. Medications + + + + | date | description | facility | + + + + | 2022-09-24 00:00 | CETIRIZINE HCL | [facility] | + + + + | 2022-08-22 00:00 | FLUOXETINE HCL | [facility] | + + + + | 2022-09-05 00:00 | FLUOXETINE HCL | [facility] | + + + + | 2022-09-24 00:00 | FLUOXETINE HCL | [facility] | + + + + | 2022-09-05 00:00 | OXYCODONE HCL | [facility] | + + + + | 2022-08-22 00:00 | OXYCODONE | [facility] | | | HCL/ACETAMINOPHEN | | + + + + | 2022-09-05 00:00 | OXYCODONE | [facility] | | | HCL/ACETAMINOPHEN | | + + + + | 2022-09-24 00:00 | OXYCODONE | [facility] | | | HCL/ACETAMINOPHEN | | + + + + | 2022-08-22 00:00 | METHOTREXATE SODIUM | [facility] | + + + + | 2022-09-05 00:00 | METHOTREXATE SODIUM | [facility] | + + + + | 2022-09-24 00:00 | METHOTREXATE SODIUM | [facility] | + + + + | 2022-08-22 00:00 | NAPROXEN SODIUM | [facility] | + + + + | 2022-09-05 00:00 | NAPROXEN SODIUM | [facility] | + + + + | 2022-09-24 00:00 | NAPROXEN SODIUM | [facility] | + + + + | 2022-09-05 00:00 | Ergocalciferol (Vitamin | [facility] | | | D2) | | + + + + | 2022-09-24 00:00 | Ergocalciferol (Vitamin | [facility] | | | D2) | | + + + + | 2022-08-22 00:00 | DULAGLUTIDE | [facility] | + + + + | 2022-09-05 00:00 | DULAGLUTIDE | [facility] | + + + + | 2022-09-24 00:00 | DULAGLUTIDE | [facility] | + + + + | 2022-09-24 00:00 | Insulin Lispro | [facility] | + + + + | 2022-09-24 00:00 | INSULIN DEGLUDEC | [facility] | + + + + | 2022-08-22 00:00 | Insulin | [facility] | | | Glanadiae,Hum.rec.anlog | | + + + + | 2022-09-05 00:00 | Insulin | [facility] | | | Glaredvine,Hum.rec.anlog | | + + + + | 2022-09-24 00:00 | FLUTICASONE PROPIONATE 50 | [facility] | | | MCG | | + + + + | 2022-09-05 00:00 | EPINEPHRINE | [facility] | + + + + | 2022-09-24 00:00 | EPINEPHRINE | [facility] | + + + + | 2022-09-05 00:00 | Adalimumab | [facility] | + + + + | 2022-09-24 00:00 | Adalimumab | [facility] | + + + + | 2022-08-22 00:00 | Adalimumab | [facility] | + + + + | 2022-09-05 00:00 | Adalimumab | [facility] | + + + + | 2022-09-05 00:00 | | [facility] | | | Fluticasone/Umeclidin/Vilan | | | | ter | | + + + + | 2022-09-24 00:00 | | [facility] | | | Fluticasone/Umeclidin/Vilan | | | | ter | | + + + + | 2022-08-22 00:00 | IBUPROFEN | [facility] | + + + + | 2022-09-05 00:00 | IBUPROFEN | [facility] | + + + + | 2022-09-24 00:00 | IBUPROFEN | [facility] | + + + + | 2022-08-22 00:00 | OMEPRAZOLE | [facility] | + + + + | 2022-09-24 00:00 | predniSONE | [facility] | + + + + | 2022-09-24 00:00 | Calcium Carbonate/Vitamin | [facility] | | | D3 | | + + + + | 2019-05-08 00:00 | AZITHROMYCIN | [facility] | + + + + | 2019-05-08 00:00 | AZITHROMYCIN | [facility] | + + + + | 2022-08-22 00:00 | PIOGLITAZONE HCL | [facility] | + + + + | 2022-09-05 00:00 | PIOGLITAZONE HCL | [facility] | + + + + | 2022-09-24 00:00 | PIOGLITAZONE HCL | [facility] | + + + + | 2022-08-22 00:00 | CLOTRIMAZOLE/BETAMETHASONE | [facility] | | | DIP | | + + + + | 2022-09-05 00:00 | CLOTRIMAZOLE/BETAMETHASONE | [facility] | | | DIP | | + + + + | 2022-09-24 00:00 | CLOTRIMAZOLE/BETAMETHASONE | [facility] | | | DIP | | + + + + | 2022-08-22 00:00 | CEPHALEXIN | [facility] | + + + + | 2022-09-05 00:00 | CEPHALEXIN | [facility] | + + + + | 2022-09-24 00:00 | CEPHALEXIN | [facility] | + + + + | 2022-09-05 00:00 | CEVIMELINE HCL | [facility] | + + + + | 2022-09-24 00:00 | CEVIMELINE HCL | [facility] | + + + + | 2022-08-22 00:00 | GABAPENTIN | [facility] | + + + + | 2022-09-05 00:00 | GABAPENTIN | [facility] | + + + + | 2022-09-24 00:00 | GABAPENTIN | [facility] | + + + + | 2022-09-24 00:00 | GLUCAGON,HUMAN RECOMBINANT | [facility] | | | | | + + + + | 2021-06-24 00:00 | LEVOFLOXACIN | [facility] | + + + + | 2021-06-24 00:00 | LEVOFLOXACIN | [facility] | + + + + | 2022-09-24 00:00 | LEVOFLOXACIN | [facility] | + + + + | 2022-08-22 00:00 | NYSTATIN | [facility] | + + + + | 2016-12-23 00:00 | ONDANSETRON | [facility] | + + + + | 2016-12-23 00:00 | ONDANSETRON | [facility] | + + + + | 2021-03-19 00:00 | ONDANSETRON | [facility] | + + + + | 2019-05-08 00:00 | predniSONE | [facility] | + + + + | 2019-05-08 00:00 | predniSONE | [facility] | + + + + | 2022-09-05 00:00 | predniSONE | [facility] | + + + + | 2022-09-05 00:00 | SUCRALFATE | [facility] | + + + + | 2022-09-05 00:00 | VALACYCLOVIR HCL | [facility] | + + + + | 2022-09-24 00:00 | VALACYCLOVIR HCL | [facility] | + + + + | 2022-08-22 00:00 | VENLAFAXINE HCL | [facility] | + + + + | 2022-09-05 00:00 | VENLAFAXINE HCL | [facility] | + + + + | 2022-09-24 00:00 | VENLAFAXINE HCL | [facility] | + + + + 2022-09-05 00:00 | PANTOPRAZOLE SODIUM | [facility] | + + + + | 2022-09-24 00:00 | PANTOPRAZOLE SODIUM | [facility] | + + + + | 2022-08-22 00:00 | SENNOSIDES | [facility] | + + + + | 2022-09-05 00:00 | SENNOSIDES | [facility] | + + + + | 2022-09-24 00:00 | SENNOSIDES | [facility] | + + + + | 2022-09-05 00:00 | Pregabalin | [facility] | + + + + | 2022-09-24 00:00 | Pregabalin | [facility] | + + + + | 2022-08-22 00:00 | TIZANIDINE HCL | [facility] | + + + + | 2022-09-05 00:00 | TIZANIDINE HCL | [facility] | + + + + | 2022-09-24 00:00 | TIZANIDINE HCL | [facility] | + + + + | 2022-08-22 00:00 | PREGABALIN | [facility] | + + + + | 2022-08-22 00:00 | PREGABALIN | [facility] | + + + + | 2022-09-05 00:00 | PREGABALIN | [facility] | + + + + | 2022-09-24 00:00 | PREGABALIN | [facility] | + + + + | 2022-08-22 00:00 | DULOXETINE HCL | [facility] | + + + + | 2022-09-05 00:00 | DULOXETINE HCL | [facility] | + + + + | 2022-09-24 00:00 | DULOXETINE HCL | [facility] | + + + + | 2022-09-24 00:00 | ATORVASTATIN CALCIUM | [facility] | + + + + | 2022-08-22 00:00 | ATORVASTATIN | [facility] | + + + + | 2022-09-05 00:00 | ATORVASTATIN | [facility] | + + + + | 2022-08-22 00:00 | SITAGLIPTIN PHOSPHATE | [facility] | + + + + | 2022-09-05 00:00 | SITAGLIPTIN PHOSPHATE | [facility] | + + + + | 2022-09-24 00:00 | SITAGLIPTIN PHOSPHATE | [facility] | + + + + | 2022-08-23 00:00 | EPINEPHRINE | [facility] | + + + + | 2022-08-22 00:00 | CHOLECALCIFEROL (VITAMIN | [facility] | | | D3) | | + + + + | 2022-09-05 00:00 | CHOLECALCIFEROL (VITAMIN | [facility] | | | D3) | | + + + + | 2022-08-22 00:00 | ETANERCEPT | [facility] | + + + + | 2022-09-05 00:00 | ETANERCEPT | [facility] | + + + + | 2022-09-24 00:00 | ETANERCEPT | [facility] | + + + + | 2022-09-24 00:00 | CYCLOBENZAPRINE HCL | [facility] | + + + + | 2022-08-22 00:00 | CYCLOBENZAPRINE HCL | [facility] | + + + + | 2022-09-05 00:00 | CYCLOBENZAPRINE HCL | [facility] | + + + + | 2022-08-22 00:00 | TRAMADOL HCL | [facility] | + + + + | 2022-09-05 00:00 | TRAMADOL HCL | [facility] | + + + + | 2022-09-24 00:00 | TRAMADOL HCL | [facility] | + + + + | 2018-01-07 00:00 | TRAMADOL HCL | [facility] | + + + + | 2018-01-07 00:00 | TRAMADOL HCL | [facility] | + + + + | 2022-08-22 00:00 | DICLOFENAC SOD | [facility] | + + + + | 2022-09-05 00:00 | DICLOFENAC SOD | [facility] | + + + + | 2022-09-24 00:00 | DICLOFENAC SOD | [facility] | + + + + | 2022-08-22 00:00 | AMITRIPTYLINE HCL | [facility] | + + + + | 2022-09-05 00:00 | AMITRIPTYLINE HCL | [facility] | + + + + | 2022-09-24 00:00 | AMITRIPTYLINE HCL | [facility] | + + + + | 2022-09-24 00:00 | ALBUTEROL SULFATE | [facility] | + + + + | 2022-08-22 00:00 | METFORMIN HCL | [facility] | + + + + | 2022-09-05 00:00 | METFORMIN HCL | [facility] | + + + + | 2022-09-24 00:00 | METFORMIN HCL | [facility] | + + + + | 2022-08-22 00:00 | Levothyroxine Sodium | [facility] | + + + + | 2022-09-05 00:00 | Levothyroxine Sodium | [facility] | + + + + | 2022-09-24 00:00 | Levothyroxine Sodium | [facility] | + + + + | 2022-09-05 00:00 | LEVOTHYROXINE SODIUM | [facility] | + + + + | 2022-08-22 00:00 | Insulin Aspart Prot/Insuln | [facility] | | | Asp | | + + + + | 2022-09-05 00:00 | Insulin Aspart Prot/Insuln | [facility] | | | Asp | | + + + + | 2022-09-24 00:00 | Insulin Aspart Prot/Insuln | [facility] | | | Asp | | + + + + | 2022-08-22 00:00 | buPROPion HCL | [facility] | + + + + | 2022-09-05 00:00 | buPROPion HCL | [facility] | + + + + | 2022-09-24 00:00 | buPROPion HCL | [facility] | + + + + Problems + + + + | date | description | facility | + + + + | 2021-03-19 00:00 | Infection due to severe | [facility] | | | acute respiratory syndrome | | | | coronavirus 2 (SARS-CoV-2) | | + + + + | 2021-03-19 00:00 | Infection due to severe | [facility] | | | acute respiratory syndrome [...] + | 2022-08-22 00:00 | Thrush | [facility] | + + + + | 2022-08-22 00:00 | Thrush | [facility] | + + + + | 2022-08-22 20:19 | CANDIDAL STOMATITIS | [facility] | + + + + | 2022-08-22 20:19 | TYPE 2 DIABETES MELLITUS | [facility] | | | WITHOUT COMPLICATIONS | | + + + + | 2022-08-22 20:19 | NICOTINE DEPENDENCE, | [facility] | | | UNSPECIFIED, UNCOMPLICATED | | + + + + | 2022-08-22 20:19 | [facility] (CURRENT) USE OF | [facility] | | | INSULIN | | + + + + | 2022-08-22 20:19 | OTHER AGRICULTURE TECHNICIAN (CURRENT) | [facility] | | | DRUG THERAPY | | + + + + | 2022-08-22 20:19 | ALLERGY STATUS TO OTH | [facility] | | | DRUG/MEDS/BIOL SUBST STATUS | | | | | | + + + + | 2022-09-05 00:00 | Mucositis | [facility] | + + + + | 2022-09-05 00:00 | Mucositis | [facility] | + + + + | 2022-09-05 00:00 | Erythema multiforme | [facility] | + + + + | 2022-09-05 00:00 | Erythema multiforme | [facility] | + + + + | [...] + + | 2022-09-05 09:02 | OTHER AGRICULTURE TECHNICIAN (CURRENT) | [facility] | | | DRUG THERAPY | | + + + + | 2022-09-05 09:02 | ALLERGY STATUS TO OTH | [facility] | | | DRUG/MEDS/BIOL SUBST STATUS | | | | | | + + + + | 2022-09-20 00:00 | Sepsis | [facility] | + + + + | 2022-09-20 00:00 | Pyelonephritis | [facility] | + + + + | [...] + + + | 2022-09-20 22:54 | [facility] (CURRENT) USE OF | [facility] | | | ANTITHROMBOTICS/ANTIPLA | | + + + + | 2022-09-20 22:54 | AGRICULTURE TECHNICIAN (CURRENT) USE OF | [facility] | | | ANTIBIOTICS | | + + + + | 2022-09-20 22:54 | AGRICULTURE TECHNICIAN (CURRENT) USE OF | [facility] | | | INSULIN | | + + + + | 2022-09-20 22:54 | [facility] (CURRENT) USE OF | [facility] | | | SYSTEMIC STEROIDS | | + + + + | 2022-09-20 22:54 | AGRICULTURE TECHNICIAN (CURRENT) USE OF | [facility] | | | AROMATASE INHIBITORS | | + + + + | 2022-09-20 22:54 | HORMONE REPLACEMENT | [facility] | | | THERAPY | | + + + + | 2022-09-20 22:54 | AGRICULTURE TECHNICIAN (CURRENT) USE OF | [facility] | | | OPIATE ANALGESIC | | + + + + | 2022-09-20 22:54 | OTHER AGRICULTURE TECHNICIAN (CURRENT) | [facility] | | | DRUG [...]
[~2022-10-18 07:35] MED LIST changes: +ATORVASTATIN CA40 MG PO; +CETIRIZINE HCL10 MG PO; +COLCRYS0.6 MG PO; +CYCLOBENZAPRINE5 MG PO; +FLUTICASONE PRO16 GM NAS; +GLUCAGON EMERGEN1 MG IM; +INSULIN LI100 UNIT/2 SUB-Q; +LOSARTAN POTASS25 MG PO; +PREDNISONE10 MG PO; +SUCRALFATE1 GM/10 ML PO; +TRESIBA FL200 UNIT/1 SUB-Q; +VALACYCLOVIR500 MG PO; +VENTOLIN HFA18 GM INH
[2022-10-18 08:24] LABS: BASOPHILS 0.1 % (0-2); EOSINOPHILS 5.3 % (0-6); HEMATOCRIT 25.4 % (35.0-50.0); HEMOGLOBIN 8.3 g/dL (12.0-18.0); LYMPHOCYTES 84.6 % (24-44); MCH 32.5 (27-36); MCHC 32.7 g/dl (30-36); MCV 99.4 fl (81-99); MONOCYTES 0.3 % (0-12); NEUTROPHILS 9.7 % (39-80); PLATELET COUNT 127 K/uL (140-440); RBC 2.56 M/ul (4.3-5.7); RDW 29.1 (10.5-15.0)
[2022-10-18 08:47] LABS: ALBUMIN 2.9 g/dL (3.4-5.0); ALBUMIN/GLOBULIN RATIO 0.81 (1.1-2.4); ANION GAP 10.7 (7-21); BILIRUBIN, TOTAL 1.5 ng/dL (0.2-1.0); BUN/CREATININE RATIO 13.75 (6.0-28.6); CALCIUM 8.5 mg/dL (8.5-10.1); CREATININE, SERUM 0.8 mg/dL (0.55-1.02); POTASSIUM 3.7 mmol/L (3.5-5.1); PROTEIN, TOTAL 6.5 g/dL (6.4-8.2)
[2022-10-18 08:56] LABS: BILIRUBIN, URINE NEGATIVE (negative); BLOOD/HGB, URINE MODERATE (Negative); KETONE, URINE NEGATIVE (Negative); LEUK ESTERASE, URINE NEGATIVE (negative); NITRITE, URINE NEGATIVE (negative)
[2022-10-18 09:04] LABS: CRYSTALS, URINE NONE SEEN (0-1+); EPITHELIAL CELLS, URINE SQUAMOUS 2+ /lpf (0-1+); RED BLOOD CELLS, URINE >50 /hpf (0-5); WHITE BLOOD CELLS, URINE 0-1 /HPF (0-5)
[2022-10-18 09:05] LABS: BACTERIA, URINE RARE /hpf (negative); CASTS, URINE NONE SEEN \\lpf; COLLECTION TYPE, URINE CLEAN CATCH; REFLEX CULTURE, URINE No (No)
[2022-10-18] MEDS ORDERED: HYDROCODONE-ACE15 M3 PO (10:20)
[2022-10-18 11:03] VITALS: BP 92/81
--- OUTSIDE RECORDS SUMMARY | 2022-10-18 13:09 | XMS ---
PreManage Notification: ENEDELIA GARCIA Security Pre Press Proofer Events No recent Security Events currently on file CRITERIA MET - [facility] - 2 Visits in 30 Days CARE PROVIDERS -Tomas- Dentist: Pin Ball Machine Mechanic [facility] PHONE: [phone] AMRIT PEREZ [facility] Current PHONE: Unknown Roxi has no Care Guidelines for this patient. Yonatan VISIT COUNT (12 MO.) [address] [place] [address] TOTAL 4 NOTE: Visits indicate total known visits. ED/UCC VISIT TRACKING (12 MO.) 10/18/2022 07:36 [facility] TYPE: Emergency COMPLAINT: - UNABLE TO SWALLOW 09/20/2022 19:32 [facility] TYPE: Emergency COMPLAINT: - FEVER 09/05/2022 09:02 [facility] TYPE: Emergency COMPLAINT: - GENERAL PAIN, NUTRITIONAL SUPPORT DIAGNOSES: - Allergy status to other drugs, medicaments and biological substances - Erythema multiforme, unspecified - Nicotine dependence, unspecified, uncomplicated - Oral mucositis (ulcerative), unspecified - Other [place] [facility] ([facility] drug therapy - Type 2 diabetes mellitus without complications 08/22/2022 20:19 [facility] TYPE: Emergency COMPLAINT: - POSS ALLERGIC REACTION DIAGNOSES: - Allergy status to other drugs, medicaments and biological substances - Candidal stomatitis - Contact with and (suspected) exposure to COVID-19 - retirement (current) use of insulin - Nicotine dependence, unspecified, uncomplicated - Other [place] [facility] drug therapy - Type 2 diabetes mellitus without complications INPATIENT VISIT TRACKING (12 MO.) 09/20/2022 22:54 [facility] TYPE: Medical Surgical COMPLAINT: - SEPSIS DIAGNOSES: - Acquired absence of both cervix and uterus - Acquired absence of both cervix and uterus - Acquired absence of other specified parts of digestive tract - Acquired absence of other specified parts of digestive tract - Allergy status to other drugs, medicaments and biological substances - Allergy status to other drugs, medicaments and biological substances - Anemia, unspecified - Anemia, unspecified - Arthropathic psoriasis, unspecified - Arthropathic psoriasis, unspecified - Body mass index [BMI] 40.0-44.9, adult - Body mass index [BMI] 40.0-44.9, adult - Chronic obstructive pulmonary disease, unspecified - Chronic obstructive pulmonary disease, unspecified - Constipation, unspecified - Constipation, unspecified - Contact with and (suspected) exposure to COVID-19 - Contact with and (suspected) exposure to COVID-19 - Filipe's syndrome, unspecified - Truro's syndrome, unspecified - Diaphragmatic hernia without obstruction or gangrene - Diaphragmatic hernia without obstruction or gangrene - Erythema multiforme, unspecified - Erythema multiforme, unspecified - Fever, unspecified - Fibromyalgia - Fibromyalgia - Gastro-esophageal reflux disease without esophagitis - Gastro-esophageal reflux disease without esophagitis - Gram-negative sepsis, unspecified - Hormone replacement therapy - Hypotension, unspecified - Hypotension, unspecified - Hypothyroidism, unspecified - Hypothyroidism, unspecified - retirement (current) use of antibiotics - retirement (current) use of antibiotics - retirement (current) use of antithrombotics/antiplatelets - retirement (current) use of antithrombotics/antiplatelets - retirement (current) use of aromatase inhibitors - retirement (current) use of aromatase inhibitors - tank terminal gauger (current) use of insulin - tank terminal gauger (current) use of insulin - retirement (current) use of opiate analgesic - tank terminal gauger (current) use of opiate analgesic - tank terminal gauger (current) use of systemic steroids - retirement (current) use of systemic steroids - Nicotine dependence, cigarettes, uncomplicated - Nicotine dependence, cigarettes, uncomplicated - Obesity, unspecified - Obesity, unspecified - Other forms of stomatitis - Other forms of stomatitis - [facility] [place] [facility] [place] [place] - [facility] [place] [facility] drug therapy - Other specified postprocedural states - Other specified postprocedural states - Secondary polycythemia - Secondary polycythemia - Sepsis due to Escherichia coli [E. coli] - Sepsis due to Escherichia coli [E. coli] - Systemic involvement of connective tissue, unspecified - Systemic involvement of connective tissue, unspecified - Tubal ligation status - Tubal ligation status - Tubulo-interstitial nephritis, not specified as acute or chronic - Tubulo-interstitial nephritis, not specified as acute or chronic - Type 2 diabetes mellitus without complications - Type 2 diabetes mellitus without complications - Unspecified Escherichia coli [E. coli] as the cause of diseases classified elsewhere - Unspecified hemorrhoids - Unspecified hemorrhoids [email or web address]
== END 2022-10-18 11:05 | disposition home or self-care (01) ==
LOC: ED 07:35
PROVIDERS: Emergency Medicine
DX: K22.89 Other specified disease of esophagus (principal); K21.9 Gastro-esophageal reflux disease without esophagitis; E11.9 Type 2 diabetes mellitus without complications; F17.200 Nicotine dependence, unspecified, uncomplicated; Z88.8 Allergy status to other drugs, medicaments and biological substances; Z79.899 Other long term (current) drug therapy; Z79.4 Long term (current) use of insulin
CPT/HCPCS: 36415; 80053; 81001; 85025; 85060; 86140; 96374; 99284-25; J1170; J7030